=== PATIENT | male | born 1955 | race Caucasian/White ===

== ENCOUNTER → 2018-03-27 | Outpatient (CLI) | payer BC, OTHER ==
[2018-03-27 10:05] LABS: Albumin 4.2 g/dL (3.5-5.0); Calcium 9.1 mg/dL (8.4-10.2); Potassium 3.5 mmol/L (3.5-5.1); Total Bilirubin 1.3 mg/dL (0.2-1.3); Total Protein 6.7 g/dL (6.3-8.2)
== END | disposition home or self-care (01) ==
LOC: LABWHC1 08:28
PROVIDERS: ATTEND Internal Medicine Interventional Cardiology
DX: E78.2 Mixed hyperlipidemia (principal)
CPT/HCPCS: 36415; 80053; 80061

== ENCOUNTER → 2019-04-06 | Outpatient (CLI) | payer MEDICARE, OTHER ==
[2019-04-06 17:29] LABS: Albumin 4.4 g/dL (3.80-4.90); Albumin/Globulin Ratio 2.2 (1.60-3.17); Anion Gap 7.8 mmol/L (4.00-12.00); Calcium 9.1 mg/dL (8.7-10.3); Carbon Dioxide 33.2 mmol/L (21.6-31.8); Potassium 3.9 mmol/L (3.5-5.5); Total Bilirubin 1.1 mg/dL (0.2-1.2); Total Protein 6.4 g/dL (6.2-8.2)
== END ==
LOC: LABWHC1 08:29
PROVIDERS: ATTEND Nurse Practitioner Adult Health
DX: E78.2 Mixed hyperlipidemia (principal); I10 Essential (primary) hypertension
CPT/HCPCS: 36415; 80053; 80061

== ENCOUNTER → 2019-07-10 | Outpatient (CLI) | payer MEDICARE, OTHER ==
--- NOTE | 2019-07-10 15:37 | CT ---
EXAMINATION TYPE: CT brain wo/w con DATE OF EXAM: 07/10/2019 COMPARISON: NONE HISTORY: Memory loss CT DLP: 2054.4 mGycm Automated Exposure Control for Dose Reduction was Utilized. TECHNIQUE: CT scan of the head is performed with IV contrast.,CT scan of the head is performed withou t and with without and with IV Contrast, patient injected with 100 mL of Isovue 300. FINDINGS: Noncontrast images show no acute intracranial hemorrhage or midline shift. The ventricles and sulci are symmetrically prominent compatible with age-related volume loss. Few patchy areas of h ypoattenuation are seen within the deep white matter, most commonly on the basis of microangiopathy. Postcontrast images show no suspicious enhancing intraparenchymal mass. The globes are intact. There is complete opacification of the right maxillary sinus and mild mucosal thickening in the ethmoid sin uses. Leftward nasal septal deviation and a small leftward nasal septal spur seen. Remaining paranasa l sinuses and mastoid air cells are well aerated. IMPRESSION: 1. No suspicious enhancing intracranial mass. No mass effect or midline shift. MRI improved sensitivi ty if there is further concern for very small metastases. 2. Mild burden nonspecific white matter change, most likely on the basis of chronic microangiopathy. 3. Complete opacification the right maxillary sinus and mild ethmoid mucosal thickening.
--- NOTE | 2019-07-10 15:39 | US ---
EXAMINATION TYPE: US carotid duplex BILAT DATE OF EXAM: 07/10/2019 COMPARISON: NONE CLINICAL HISTORY: I67.82 Cerebral Ischemia. EXAM MEASUREMENTS: RIGHT: Peak Systolic Velocity (PSV) cm/sec ----- Right CCA: 108.2 ----- Right ICA: 89.2 ----- Right ECA: 78.8 ICA/CCA ratio: 0.8 RIGHT: End Diastole cm/sec ----- Right CCA: 21.5 ----- Right ICA: 28.3 ----- Right ECA: 11.5 LEFT: Peak Systolic Velocity (PSV) cm/sec ----- Left CCA: 102.3 ----- Left ICA: 80.1 ----- Left ECA: 141.5 ICA/CCA ratio: 0.8 LEFT: End Diastole cm/sec ----- Left CCA: 19.5 ----- Left ICA: 25.8 ----- Left ECA: 16.0 VERTEBRALS (direction of flow): Right Vertebral: Antegrade Left Vertebral: Antegrade Rhythm: Normal Moderate amount of plaque visualized in bilateral bulbs. Elevated left ECA velocity incidentally note d, mild stenosis. IMPRESSION: Moderate degree of grayscale atheromatous plaquing with no sonographically evident hemod ynamically significant stenosis within either visualized common nor internal carotid arterial system. Criteria for Assigning % of Stenosis / Diameter reduction (Estimation based on the indirect measurements of the internal carotid artery velocities (ICA PSV). 1. Normal (no stenosis)=ICA PSV < 125 cm/s: ratio < 2.0: ICA EDV<40 cm/s. 2. Less than 50% stenosis=ICA PSV < 125 cm/s: ratio < 2.0: ICA EDV<40 cm/s. 3. 50 to 69% stenosis=ICA PSV of 125 to 230 cm/s: ration 2.0 ? 4.0: ICA EDV 40-100 cm/s. 4. Greater than 70% stenosis to near occlusion= ICA PSV > 230 cm/s: ratio > 4.0: ICA EDV > 100 cm/s. 5. Near occlusion= ICA PSV velocities may be low or undetectable: variable ratio and ICA EDV. 6. Total occlusion=unable to detect flow.
--- NOTE | 2019-07-10 17:19 | XR ---
EXAMINATION TYPE: XR chest 2V DATE OF EXAM: 07/10/2019 COMPARISON: Prior chest x-ray 12/12/2015 HISTORY: Asbestosis TECHNIQUE: Frontal and lateral views of the chest are obtained. FINDINGS: There is no focal air space opacity, pleural effusion, or pneumothorax seen. The cardiac silhouette size is stable. There is some lateralization of the left hemidiaphragm. The osseous struc tures are intact. Increased AP diameter of the chest, prominent lung volume may be indicative of unde rlying COPD. IMPRESSION: No acute cardiopulmonary process.
== END ==
LOC: RADCTMAIN 13:57
PROVIDERS: ATTEND Family Medicine
DX: I65.23 Occlusion and stenosis of bilateral carotid arteries (principal); R90.89 Other abnormal findings on diagnostic imaging of central nervous system; J61 Pneumoconiosis due to asbestos and other mineral fibers
CPT/HCPCS: 71046; 93880; 70470; Q9967

== ENCOUNTER → 2019-10-21 | Outpatient (CLI) | payer MEDICARE, OTHER ==
[2019-10-21 16:21] LABS: Chol/HDL Ratio 2.77; LDL Cholesterol,Calculated 68.2 mg/dL (0.0-131.0); VLDL Calculation 16.8 mg/dL (5.00-40.00)
== END | disposition home or self-care (01) ==
LOC: LABWHC1 10:16
PROVIDERS: ATTEND Internal Medicine Interventional Cardiology
DX: E78.2 Mixed hyperlipidemia (principal)
CPT/HCPCS: 36415; 80061; 84450; 84460

== ENCOUNTER → 2020-05-16 | Outpatient (CLI) | payer MEDICARE, OTHER ==
--- NOTE | 2020-05-16 11:48 | XR ---
EXAM TYPE: LUMBAR SPINE X RAY SERIES COMPARISON: NONE HISTORY: Low back TECHNIQUE: 3 views are submitted. FINDINGS: Alignment is anatomic. The pedicles are intact. The transverse processes are intact. There is no s pondylolisthesis. Multilevel hypertrophic changes noted. There is multilevel facet arthropathy. Dege nerative mild disc disease noted at multiple levels. Atherosclerotic changes of the aorta. IMPRESSION: 1. Multilevel hypertrophic and degenerative changes.
== END | disposition home or self-care (01) ==
LOC: RADXRMAIN 11:24
PROVIDERS: ATTEND Family Medicine
DX: M47.816 Spondylosis without myelopathy or radiculopathy, lumbar region (principal)
CPT/HCPCS: 72100

== ENCOUNTER → 2020-05-17 | Outpatient (CLI) | payer MEDICARE, OTHER ==
[2020-05-17 18:05] LABS: African American GFR (CKD) 55.4 (60.0-200.0); Albumin 4.6 g/dL (3.80-4.90); Anion Gap 10.2 mmol/L (4.00-12.00); Calcium 9.2 mg/dL (8.7-10.3); Carbon Dioxide 29.8 mmol/L (21.6-31.8); Chol/HDL Ratio 2.69; Globulin 2.3 g/dL (1.6-3.3); LDL Cholesterol,Calculated 71.2 mg/dL (0.0-131.0); Non-African American GFR(CKD) 47.8 (60.0-200.0); Potassium 3.5 mmol/L (3.5-5.5); Total Protein 6.9 g/dL (6.2-8.2); VLDL Calculation 14.8 mg/dL (5.00-40.00)
== END | disposition home or self-care (01) ==
LOC: LABWHC1 07:46
PROVIDERS: ATTEND Internal Medicine Interventional Cardiology
DX: E78.2 Mixed hyperlipidemia (principal)
CPT/HCPCS: 36415; 80053; 80061

== ENCOUNTER → 2020-07-20 | Outpatient (CLI) | payer MEDICARE, OTHER ==
--- NOTE | 2020-07-20 17:42 | US ---
EXAMINATION TYPE: US carotid duplex BILAT DATE OF EXAM: 07/20/2020 COMPARISON: NONE CLINICAL HISTORY: I65.29 Occlusion and stenosis of unspecified.... EXAM MEASUREMENTS: RIGHT: Peak Systolic Velocity (PSV) cm/sec ----- Right CCA: 86.0 ----- Right ICA: 60.9 ----- Right ECA: 63.1 ICA/CCA ratio: 0.69 RIGHT: End Diastole cm/sec ----- Right CCA: 32.6 ----- Right ICA: 24.4 ----- Right ECA: 12.9 LEFT: Peak Systolic Velocity (PSV) cm/sec ----- Left CCA: 60.9 ----- Left ICA: 57.6 ----- Left ECA: 68.6 ICA/CCA ratio: 0.95 LEFT: End Diastole cm/sec ----- Left CCA: 16.9 ----- Left ICA: 30.2 ----- Left ECA: 12.0 VERTEBRALS (direction of flow): Right Vertebral: not visualized Left Vertebral: Antegrade Rhythm: Normal Mild atherosclerotic changes with no significant velocity increases seen bilaterally. Some focal plaques are within the bilateral common carotid arteries. IMPRESSION: Atheromatous plaquing without significant flow-limiting stenosis. Criteria for Assigning % of Stenosis / Diameter reduction (Estimation based on the indirect measurements of the internal carotid artery velocities (ICA PSV). 1. Normal (no stenosis)=ICA PSV < 125 cm/s: ratio < 2.0: ICA EDV<40 cm/s. 2. Less than 50% stenosis=ICA PSV < 125 cm/s: ratio < 2.0: ICA EDV<40 cm/s. 3. 50 to 69% stenosis=ICA PSV of 125 to 230 cm/s: ration 2.0 ? 4.0: ICA EDV 40-100 cm/s. 4. Greater than 70% stenosis to near occlusion= ICA PSV > 230 cm/s: ratio > 4.0: ICA EDV > 100 cm/s. 5. Near occlusion= ICA PSV velocities may be low or undetectable: variable ratio and ICA EDV. 6. Total occlusion=unable to detect flow.
== END | disposition home or self-care (01) ==
LOC: RADUSWWP 08:18
PROVIDERS: ATTEND Family Medicine
DX: I65.23 Occlusion and stenosis of bilateral carotid arteries (principal)
CPT/HCPCS: 93880

== ENCOUNTER 2021-04-25 07:54 | Day surgery (SDC) | payer MEDICARE, OTHER ==
[2021-04-19 18:08] VITALS: BMI 28.5
[~2021-04-25 07:54] MED LIST: LACTATED RINGERS 1,000 ML IV SCH; LIDOCAINE 1% (10MG/ML) FOR IV START INTRADERMA PRN
[2021-04-25 08:17] VITALS: TEMP 97
[2021-04-25] MEDS ORDERED: PROPOFOL 10 MG/ML 20 ML VIAL IV ONE (08:41)
[2021-04-25] MEDS ORDERED: LIDOCAINE 1% INJ 10MG/ML (20 ML MDV) ONE (08:41)
[2021-04-25 09:14] VITALS: RESP 16
--- NOTE | 2021-04-25 09:14 | P.PCN ---
Date of Procedure: 04/25/21 Description of Procedure: BRIEF HISTORY: Patient is a 66-year-old male presenting for outpatient colonoscopy for history of colon polyps. No change in bowel habits or blood per rectum reported. History of polypectomy. No family history of colon cancer. PROCEDURE PERFORMED: Colonoscopy with polypectomy. PREOPERATIVE DIAGNOSIS: History of colon polyps, last colonoscopy 5 years ago. ESTIMATED BLOOD LOSS: Minimal. IV sedation per Anesthesia. PROCEDURE: After informed consent was obtained, the patient, was brought into the endoscopy unit. IV sedation was administered by Anesthesia under continuous monitoring. Digital rectal examination was normal. Initially the Olympus CF-190 flexible video colonoscope was then inserted in the rectum, gradually advanced into the cecum without any difficulty. Careful examination was performed as the scope was gradually being withdrawn. Ileocecal valve and the appendiceal orifice were visualized and appeared normal. Prep was excellent. Mucosa of the cecum, ascending colon, transverse colon, descending colon, sigmoid colon, and rectum appeared normal, with a few scattered diverticula noted in the sigmoid colon. A sessile 2 mm transverse colon polyp was removed with cold forceps polypectomy. Retroflexion was performed in the rectum and no lesions were seen. The patient tolerated the procedure well. IMPRESSION: Diminutive transverse colon polyp removed with cold forcep polypectomy. Mild sigmoid diverticulosis. RECOMMENDATIONS: Findings of this examination were discussed with the patient and his family. Okay to resume diet. Okay to resume medication. Await pathology from polypectomy. Recommend repeat colonoscopy in 5 years for history of colon polyps.
[2021-04-25 09:38] VITALS: BP 115/50; PULSE 62
== END 2021-04-25 09:57 | disposition home or self-care (01) ==
LOC: ORWHC2ENDO 07:54
PROVIDERS: ATTEND Internal Medicine
DX: Z12.11 Encounter for screening for malignant neoplasm of colon (principal); D12.3 Benign neoplasm of transverse colon; Z86.010 Personal history of colon polyps; I10 Essential (primary) hypertension; E78.5 Hyperlipidemia, unspecified; I25.2 Old myocardial infarction; Z79.899 Other long term (current) drug therapy
CPT/HCPCS: 88305; 45380; J2001; J2704

== ENCOUNTER 2021-06-01 05:51 | Day surgery (SDC) | payer MEDICARE, OTHER ==
[2021-05-30 11:57] VITALS: BMI 27.8
[~2021-06-01 05:51] MED LIST changes: -LACTATED RINGERS 1,000 ML IV SCH; -LIDOCAINE 1% (10MG/ML) FOR IV START INTRADERMA PRN; +SODIUM CHLORIDE 0.9% 1,000 ML IV SCH
[2021-06-01 06:43] LABS: Calcium 9.3 mg/dL (8.4-10.2); Potassium 3.1 mmol/L (3.5-5.1)
[2021-06-01 07:00] VITALS: TEMP 97.9
[2021-06-01] MEDS ORDERED: PROPOFOL 10 MG/ML 20 ML VIAL IV ONE (07:15)
[2021-06-01] MEDS ORDERED: LIDOCAINE 1% INJ 10MG/ML (20 ML MDV) ONE (07:15)
[2021-06-01 07:59] VITALS: RESP 16
[2021-06-01] MEDS ORDERED: SODIUM CHLORIDE 0.9% 1,000 ML IV SCH (08:00)
[2021-06-01] MEDS ORDERED: VALSARTAN 160 MG TAB PO SCH (09:00)
[2021-06-01] MEDS ORDERED: hydroCHLOROthiazide 25 MG TAB PO SCH (09:00)
[2021-06-01] MEDS ORDERED: METOPROLOL TARTRATE 25 MG TAB PO SCH (09:00)
--- NOTE | 2021-06-01 09:01 | ECHOT ---
TRANSESOPHAGEAL ECHOCARDIOGRAM PROCEDURE: Transesophageal echocardiogram. INDICATION: Atrial fibrillation. PROCEDURE IN DETAIL: After explaining the procedure to the patient, its risks and the complications, his blood pressure, heart rate, O2 saturation was monitored. The throat was sprayed with Cetacaine. He received sedation per Anesthesia Department. The probe was introduced in the esophagus without difficulty. Images were obtained. Following that, the probe was removed. There was no immediate complication. FINDINGS: Left atrial size is dilated. Left atrial appendage is normal. Left ventricular size is normal. The inferior wall is hypokinetic. Estimated ejection fraction 45-50%. The aortic valve revealed mild fibrocalcific change with aortic cusp with preserved opening. Mitral valve revealed mild mitral anulus calcification. Tricuspid valve is normal. Descending thoracic aorta appears to be normal. No pericardial effusion was noted. Contrast bubble study revealed no evidence of shunting across the interatrial septum. Doppler pulse wave and color Doppler obtained and revealed a moderate mitral with mild tricuspid and trace pulmonic and aortic regurgitation. There was no shunting by color Doppler study. CONCLUSION: 1. Dilated left atrium with normal appearance of left atrial appendage. 2. Normal left ventricular size with mildly impaired left ventricular systolic function with segmental wall motion abnormality. 3. Moderate mitral with trace aortic and pulmonic regurgitation. 4. No shunting across the interatrial septum. MMODL / IJN: [id number] /
--- NOTE | 2021-06-01 09:41 | CE ---
CARDIAC ELECTROPHYSIOLOGY REPORT PROCEDURE PERFORMED: Cardioversion. INDICATION: Atrial fibrillation. PROCEDURE: After explaining the procedure to the patient, its risks and complication, after obtaining sedated state per Anesthesia Department and performing transesophageal echocardiogram, a synchronized biphasic cardioversion was done using 200 joule that was unsuccessful in restoring sinus mechanism. Subsequently, second cardioversion using 250 joules was successful in restoring sinus mechanism. There was no immediate complication. JUAN JOSÉ / JAIDENN: [id number] /
[2021-06-01 16:45] VITALS: BP 114/66
[2021-06-01 16:46] VITALS: PULSE 44
[2021-06-01] MEDS ORDERED: ATORVASTATIN 80 MG TAB PO SCH (21:00)
[2021-06-01] MEDS ORDERED: EZETIMIBE 10 MG TAB PO SCH (21:00)
[2021-06-01] MEDS ORDERED: APIXABAN 5 MG TAB PO SCH (21:00)
[2021-06-02] MEDS ORDERED: amLODIPine 10 MG TAB PO SCH (09:00)
== END 2021-06-01 09:52 | disposition home or self-care (01) ==
LOC: CATHCVL 05:51
PROVIDERS: ATTEND Internal Medicine Interventional Cardiology
DX: I48.11 Longstanding persistent atrial fibrillation (principal); I25.10 Atherosclerotic heart disease of native coronary artery without angina pectoris; I25.5 Ischemic cardiomyopathy; I08.0 Rheumatic disorders of both mitral and aortic valves; E78.2 Mixed hyperlipidemia; I10 Essential (primary) hypertension; R94.39 Abnormal result of other cardiovascular function study; I25.2 Old myocardial infarction; G47.30 Sleep apnea, unspecified; Z95.5 Presence of coronary angioplasty implant and graft; Z85.46 Personal history of malignant neoplasm of prostate; Z92.3 Personal history of irradiation; Z98.890 Other specified postprocedural states; Z82.49 Family history of ischemic heart disease and other diseases of the circulatory system; Z87.891 Personal history of nicotine dependence; Z79.01 Long term (current) use of anticoagulants; Z79.899 Other long term (current) drug therapy
CPT/HCPCS: 93312; 93320; 93325; 92960; 80048; J2001; J2704

== ENCOUNTER → 2021-12-25 | Outpatient (CLI) | payer MEDICARE, OTHER ==
--- NOTE | 2021-12-25 11:59 | XR ---
EXAMINATION TYPE: XR chest 2V DATE OF EXAM: 12/25/2021 COMPARISON: Chest x-ray 07/10/2019 HISTORY: J 61 TECHNIQUE: Frontal and lateral views of the chest are obtained. FINDINGS: There is no focal air space opacity, pleural effusion, or pneumothorax seen. The cardiac silhouette size is stable. The osseous structures are stable, old fracture with bayonet apposition and healing at the mid diaphyseal right clavicle is noted. Aorta is dense. IMPRESSION: No acute cardiopulmonary process.
[2021-12-25 14:58] LABS: ALT 21 U/L (10-49); AST 21 U/L (14-35); African American GFR (CKD) 64.8 (60.0-200.0); Albumin 4.3 g/dL (3.8-4.9); Albumin/Globulin Ratio 1.51 (1.60-3.17); Alkaline Phosphatase 167 U/L (41-126); BUN/Creat Ratio 13.44 Ratio (12.00-20.00); Blood Urea Nitrogen 17.6 mg/dL (9.0-27.0); Calcium 9.4 mg/dL (8.7-10.3); Carbon Dioxide 28.7 mmol/L (20.0-27.5); Chloride 101 mmol/L (96-109); Chol/HDL Ratio 2.61 Ratio; Globulin 2.9 g/dL (1.6-3.3); Glucose 96 mg/dL (70-110); LDL Cholesterol,Calculated 64.8 mg/dL (0.0-131.0); Non-African American GFR(CKD) 55.9 (60.0-200.0); Potassium 3.2 mmol/L (3.5-5.5); Sodium 142 mmol/L (135-145); Total Protein 7.2 g/dL (6.2-8.2)
== END | disposition home or self-care (01) ==
LOC: RADXRMAIN 09:30
PROVIDERS: ATTEND Family Medicine
DX: J61 Pneumoconiosis due to asbestos and other mineral fibers (principal)
CPT/HCPCS: 71046; 80053; 80061

== ENCOUNTER → 2021-12-25 | Outpatient (CLI) | payer MEDICARE, OTHER | END | disposition home or self-care (01) | LOC: LABWHC1 10:01 | PROVIDERS: ATTEND Internal Medicine Interventional Cardiology | DX: Z53.9 Procedure and treatment not carried out, unspecified reason (principal) ==

== ENCOUNTER → 2024-06-19 | Outpatient (CLI) | payer MEDICARE, OTHER ==
--- NOTE | 2024-06-19 13:15 | US ---
EXAMINATION TYPE: US carotid duplex BILAT DATE OF EXAM: 06/19/2024 COMPARISON: Carotid ultrasound 07/20/2020, 07/10/2019 CLINICAL INDICATION: Male, 69 years old with history of I65.29 OCCLUSION AND STENOSIS OF UNSPECIFIED CAROT; Drooling; Hx HTN TECHNIQUE: Carotid duplex ultrasound examination. Indirect Doppler criteria was utilized. FINDINGS: EXAM MEASUREMENTS: RIGHT: Peak Systolic Velocity (PSV) cm/sec ----- Right CCA: 72 ----- Right ICA: 48 ----- Right ECA: 65 ICA/CCA ratio: 0.7 RIGHT: End Diastole cm/sec ----- Right CCA: 14 ----- Right ICA: 19 ----- Right ECA: 12 LEFT: Peak Systolic Velocity (PSV) cm/sec ----- Left CCA: 78 ----- Left ICA: 67 ----- Left ECA: 78 ICA/CCA ratio: 0.9 LEFT: End Diastole cm/sec ----- Left CCA: 18 ----- Left ICA: 18 ----- Left ECA: 8 VERTEBRALS (direction of flow): Right Vertebral: Limted visualization; ? Antegrade Left Vertebral: Antegrade Rhythm: Arrhythmia; Image 16 CASINO HOST NOTES: Calcifications seen bilateral CCAs, no intimal thickening, and no elevated velocit ies Left thyroid lobe hypoechoic nodule measuring 2.2 x 1.8 x 2.4 cm. IMPRESSION: 1. Mild atherosclerotic plaque without flow limiting stenosis. 2. Left thyroid lobe hypoechoic nodule measuring up to 2.4 cm. Further evaluation with thyroid ultra sound is recommended. 3. Arrhythmia noted. EKG is recommended. Criteria for Assigning % of Stenosis / Diameter reduction (Estimation based on the indirect measurements of the internal carotid artery velocities (ICA PSV). 1. Normal (no stenosis)=ICA PSV < 125 cm/s: ratio < 2.0: ICA EDV<40 cm/s. 2. Less than 50% stenosis=ICA PSV < 125 cm/s: ratio < 2.0: ICA EDV<40 cm/s. 3. 50 to 69% stenosis=ICA PSV of 125 to 230 cm/s: ration 2.0 ? 4.0: ICA EDV 40-100 cm/s. 4. Greater than 70% stenosis to near occlusion= ICA PSV > 230 cm/s: ratio > 4.0: ICA EDV > 100 cm/s. 5. Near occlusion= ICA PSV velocities may be low or undetectable: variable ratio and ICA EDV. 6. Total occlusion=unable to detect flow.
== END | disposition home or self-care (01) ==
LOC: RADUSWWP 12:31
PROVIDERS: ATTEND Family Medicine
DX: I65.29 Occlusion and stenosis of unspecified carotid artery (principal); I70.90 Unspecified atherosclerosis
CPT/HCPCS: 93880

== ENCOUNTER → 2024-07-06 | Outpatient (CLI) | payer MEDICARE, OTHER ==
--- NOTE | 2024-08-13 08:45 | US ---
Site ID [facility] Patient Wesley Roberson ID [id number] Age/Gender: 69Y, N/A Order # N/A Procedure US thyroid st tissue head/neck Date 07/06/2024 12:41:00 PM EXAMINATION TYPE: US thyroid st tissue head/neck DATE OF EXAM: 07/20/2024 COMPARISON: None, please note PACS Production downtime occurred during the radiologist interpretation of these images with limited priors/reports. CLINICAL INDICATION: 69 year old with history of thyroid nodule visualized on outside institution car otid ultrasound. GLAND SIZE: Right Lobe: 4.2 x 2.1 x 1.9 cm Overall Parenchyma: homogeneous Left Lobe: 4.2 x 2.3 x 2.2 cm Overall Parenchyma: homogeneous Isthmus Thickness: 0.3 cm NODULES RIGHT: # of nodules measured on right: 1 1. 2.6 X 1.7 x 1.6 cm, lower , solid or almost completely solid, hypoechoic nodule, which is wider than tall, with smooth margins, with echogenic foci. TR 4. LEFT: # of nodules measured on left: 1 1. 2.2 X 2.1 x 1.8 cm, mid , solid or almost completely solid, hypoechoic nodule, which is wider th an tall, with smooth margins, without echogenic foci. TR 4. ISTHMUS: # of nodules measured in the isthmus: 0 Bilateral neck scanned, no evidence of lymphadenopathy. IMPRESSION: Bilateral thyroid nodules as described above. ACR TI-RADS LEVEL: TR-RADS 4 - Moderately Suspicious: Follow if > 1 cm, FNA if > 1.5 cm *Highest TI-RADS level nodule reported
== END | disposition home or self-care (01) ==
LOC: RADUSWWP 12:00
PROVIDERS: ATTEND Family Medicine
CPT/HCPCS: 76536

== ENCOUNTER → 2024-10-13 | Outpatient (CLI) | payer MEDICARE, OTHER ==
[2024-10-13 19:43] LABS: ALT 20 U/L (10-49); AST 19 U/L (14-35); Albumin 4.5 g/dL (3.8-4.9); Albumin/Globulin Ratio 1.61 Ratio (1.60-3.17); Alkaline Phosphatase 184 U/L (41-126); BUN/Creat Ratio 15.08 Ratio (12.00-20.00); Blood Urea Nitrogen 18.1 mg/dL (9.0-27.0); Calcium 9.6 mg/dL (8.7-10.3); Chloride 104 mmol/L (96-109); Chol/HDL Ratio 3.15 Ratio; Globulin 2.8 g/dL (1.6-3.3); Glucose 98 mg/dL (70-110); LDL Cholesterol,Calculated 106.6 mg/dL (0.0-131.0); Potassium 3.6 mmol/L (3.5-5.5); Sodium 141 mmol/L (135-145); Total Bilirubin 1.4 mg/dL (0.3-1.2); Total Protein 7.3 g/dL (6.2-8.2)
== END | disposition home or self-care (01) ==
LOC: LABWHC1 15:07
PROVIDERS: ATTEND Internal Medicine Interventional Cardiology
DX: I10 Essential (primary) hypertension (principal); E78.2 Mixed hyperlipidemia
CPT/HCPCS: 36415; 80053; 80061

== ENCOUNTER 2024-11-06 17:12 | Emergency (ER) | payer MEDICARE, OTHER ==
[2024-11-06 17:22] VITALS: TEMP 97.9
[2024-11-06] MEDS: SODIUM CHLORIDE 0.9% 500 ML 500 ML IV ONE (18:17)
[2024-11-06 18:19] LABS: Basophils % (A) 0 %; Eosinophils % (A) 0 %; HCT 49.1 % (39.0-53.0); HGB 16.7 gm/dL (13.0-17.5); Lymphocytes # (A) 2.3 k/uL (1.0-4.8); Lymphocytes % (A) 20 %; MCH 29.9 pg (25.0-35.0); MCV 87.9 fL (80.0-100.0); Mean Platelet Volume 6.7; Monocytes # (A) 0.8 k/uL (0-1.0); Monocytes % (A) 7 %; Neutrophils # (A) 7.9 k/uL (1.3-7.7); Neutrophils % (A) 71 %; Platelet Count 230 k/uL (150-450); RBC 5.59 m/uL (4.30-5.90); RDW 12.3 % (11.5-15.5); WBC 11.2 k/uL (3.8-10.6)
[2024-11-06 18:30] LABS: ALT 18 U/L (4-49); AST 22 U/L (17-59); African American GFR (CKD) 63 (>60 ml/min/1.73 sqM); Albumin 4.8 g/dL (3.5-5.0); Alkaline Phosphatase 133 U/L (38-126); Anion Gap 10 mmol/L; Blood Urea Nitrogen 22 mg/dL (9-20); Carbon Dioxide 24 mmol/L (22-30); Chloride 105 mmol/L (98-107); Glucose 99 mg/dL (74-99); Non-African American GFR(CKD) 54 (>60 ml/min/1.73 sqM); Potassium 3.4 mmol/L (3.5-5.1); Sodium 139 mmol/L (137-145); Total Protein 7.5 g/dL (6.3-8.2)
[2024-11-06 18:32] LABS: Partial Thromboplastin Time 23.4 sec (22.0-30.0); Prothrombin Time 11.5 sec (10.0-12.5)
--- NOTE | 2024-11-06 19:11 | ED ---
Altered Mental Status HPI - General Chief Complaint: Altered Mental Status Stated Complaint: Abn Labs Time Seen by Provider: 11/06/24 17:23 Source: patient, family Mode of arrival: ambulatory Limitations: altered mental status - History of Present Illness Initial Comments: 69-year-old male with history of dementia, A-fib, CAD, hypertension, hyperlipidemia, [place] presenting with acute worsening of his confusion and agitation. Patient's reports that this has been ongoing for about 5 days. They were seen at Dr. Stack's office earlier today and advised to come to the ER. She also reports he has had significantly decreased appetite. States that he has not eaten in 3 days and is only drinking a small amount of Gatorade. No nausea or vomiting. states he told her he had diarrhea earlier today. No chest pain, difficulty breathing, abdominal pain. No fever, chills, cough, congestion, sore throat. denies any falls or injuries. - Related Data Home Medications Medication Instructions Recorded Confirmed Atorvastatin [Lipitor] 80 mg PO HS 04/13/16 11/06/24 Metoprolol Tartrate [Lopressor] 25 mg PO HS 04/13/16 11/06/24 amLODIPine [Norvasc] 10 mg PO HS 04/13/16 11/06/24 Ezetimibe [Zetia] 10 mg PO HS 04/19/21 11/06/24 Apixaban [Eliquis] 5 mg PO HS 11/06/24 11/06/24 Ergocalciferol (Vitamin D2) 1,250 mcg PO RUDOLPH 11/06/24 11/06/24 [Drisdol (50,000 Iu)] Potassium Chloride ER [K-Dur 20] 20 meq PO HS 11/06/24 11/06/24 Allergies Allergy/AdvReac Type Severity Reaction Status Date / Time No Known Allergies Allergy Verified 11/06/24 18:29 Review of Systems ROS Statement: Those systems with pertinent positive or pertinent negative responses have been documented in the HPI. ROS Other: All systems not noted in ROS Statement are negative. Past Medical History Past Medical History: Atrial Fibrillation, Coronary Artery Disease (CAD), Cancer, Dementia, Hyperlipidemia, Hypertension, Myocardial Infarction ([place]) Additional Past Medical History / Comment(s): HX OF PROSTATE CANCER WITH RADIATION SEED IMPLANTS (2010). hx of colon polyps Last Myocardial Infarction Date:: 2011 History of Any Multi-Drug Resistant Organisms: None Reported Past Surgical History: Heart Catheterization With Stent Additional Past Surgical History / Comment(s): COLONOSCOPY. Past Anesthesia/Blood Transfusion Reactions: No Reported Reaction Date of Last Stent Placement:: 2011 Past Psychological History: No Psychological Hx Reported Smoking Status: Never smoker - Past Family History Mother Family Medical History: No Reported History Additional Family Medical History / Comment(s): . General Exam Limitations: altered mental status General appearance: alert, in no apparent distress Head exam: Present: atraumatic, normocephalic, normal inspection Eye exam: Present: normal appearance, PERRL, EOMI Pupils: Present: normal accommodation Neck exam: Present: normal inspection. Absent: meningismus Respiratory exam: Present: normal lung sounds bilaterally. Absent: respiratory distress, wheezes, rales, rhonchi, stridor Cardiovascular Exam: Present: regular rate, normal rhythm, normal heart sounds. Absent: systolic murmur, diastolic murmur, rubs, gallop, clicks GI/Abdominal exam: Present: soft. Absent: distended, tenderness, guarding, rebound, rigid Neurological exam: Present: alert, altered Skin exam: Present: warm, dry, normal color Course Vital Signs 11/06/24 11/06/24 17:17 19:28 Temperature 97.9 F Pulse Rate 82 58 L Respiratory 18 16 Rate Blood Pressure 115/81 130/78 O2 Sat by Pulse 97 98 Oximetry Medical Decision Making - Medical Decision Making EKG shows sinus rhythm ventricular rate 66. LA interval 152. QRS 112. QT 411. QTc 425. Was pt. sent in by a medical professional or institution (, PA, SECRETARIAL STENOGRAPHER, urgent care, hospital, or longterm...) When possible be specific @ -PCP Did you speak to anyone other than the patient for history (EMS, parent, family, police, friend...)? What history was obtained from this source @ - Did you review nursing and triage notes (agree or disagree)? Why? @ -I reviewed and agree with nursing and triage notes Were old charts reviewed (outside hosp., previous admission, EMS record, old EKG, old radiological studies, urgent care reports/EKG's, longterm records)? Report findings @ -No old charts were reviewed Differential Diagnosis (chest pain, altered mental status, abdominal pain women, abdominal pain men, vaginal bleeding, weakness, fever, dyspnea, syncope, headache, dizziness, GI bleed, back pain, seizure, CVA, palpatations, mental health, musculoskeletal)? @ -MDM Differential Altered Mental Status: Hypoglycemia, DKA, hypercapnia, ETOH, overdose, CO poisoning, trauma, myxedema coma, HTN encephalopathy, infection, encephalitis, psychosis, intercranial hemorrhage, hepatic encephalopathy, meningitis, CVA this is not meant to be an all-inclusive list EKG interpreted by me (3pts min.). @ -As above X-rays interpreted by me (1pt min.). @ -Chest x-ray shows no acute cardiopulmonary disease/process CT interpreted by me (1pt min.). @ -CT shows no acute intracranial process. Nonspecific white matter changes likely secondary to chronic small vessel ischemic disease U/S interpreted by me (1pt. min.). @ -None done What testing was considered but not performed or refused? (CT, X-rays, U/S, labs)? Why? @ -None What meds were considered but not given or refused? Why? @ -None Did you discuss the management of the patient with other professionals (professionals i.e. , PA, SECRETARIAL STENOGRAPHER, lab, RT, psych nurse, social secretary, elevator repairer helper, teacher, building drafting officer, bilingual case manager)? Give summary @ -No Was smoking cessation discussed for >3mins.? @ -No Was critical care preformed (if so, how long)? @ -No Were there social determinants of health that impacted care today? How? (Homelessness, low income, unemployed, alcoholism, drug addiction, transportation, low edu. Level, literacy, decrease access to med. care, fpc, rehab)? @ -No Was there de-escalation of care discussed even if they declined (Discuss DNR or withdrawal of care, Hospice)? DNR status @ -No What co-morbidities impacted this encounter? (DM, HTN, Smoking, COPD, CAD, Canc er, CVA, ARF, Chemo, Hep., AIDS, mental health diagnosis, sleep apnea, morbid obesity)? @ -None Was patient admitted / discharged? Hospital course, mention meds given and route, prescriptions, significant lab abnormalities, going to OR and other pertinent info. @ -69-year-old male brought in by his for increased altered mental status. Patient has history of dementia but over the past 5 days his confusion and agitation has acutely worsened. History and physical examination are conducted. WBC 11.2. Potassium 3.4. Creatinine 1.33 BUN 22, consistent with the patient's baseline. Troponin is negative. No acute process seen on CT of the brain or chest x-ray. No UTI seen. On reassessment the patient is showing no acute signs of distress. I discussed today's results with the patient's . I offered admission with possible longterm placement. declines, she will follow-up with her primary care provider and bring him back sooner with any changes. Discharged. Follow-up with PCP. Report back to ER with any new or worsening symptoms. Discussed return parameters and answered all questions. Patient's conveyed verbal understanding and agreed to the plan. I di scussed this case in detail with my attending Dr. Turpin Undiagnosed new problem with uncertain prognosis? @ -No Drug Therapy requiring intensive monitoring for toxicity (Heparin, Nitro, Insulin, Cardizem)? @ -No Were any procedures done? @ -No Diagnosis/symptom? @ -Dementia Acute, or Chronic, or Acute on Chronic? @ -Acute on chronic Uncomplicated (without systemic symptoms) or Complicated (systemic symptoms)? @ -Uncomplicated Side effects of treatment? @ -No Exacerbation, Progression, or Severe Exacerbation? @ -No Poses a threat to life or bodily function? How? (Chest pain, [place], [place], pneumonia, PE, COPD, DKA, ARF, appy, cholecystitis, CVA, Diverticulitis, Homicidal, Suicidal, threat to staff... and all critical care pts) @ -No immediate threat at this time - Lab Data Result diagrams: 11/06/24 18:05 11/06/24 18:05 Lab Results 11/06/24 11/06/24 11/06/24 Range/Units 18:05 18:05 18:05 WBC 11.2 H (3.8-10.6) k/uL RBC 5.59 (4.30-5.90) m/uL Hgb 16.7 (13.0-17.5) gm/dL Hct 49.1 (39.0-53.0) % MCV 87.9 (80.0-100.0) fL MCH 29.9 (25.0-35.0) pg MCHC 34.0 (31.0-37.0) g/dL RDW 12.3 (11.5-15.5) % Plt Count 230 (150-450) k/uL MPV 6.7 Neutrophils % 71 % Lymphocytes % 20 % Monocytes % 7 % Eosinophils % 0 % Basophils % 0 % Neutrophils # 7.9 H (1.3-7.7) k/uL Lymphocytes # 2.3 (1.0-4.8) k/uL Monocytes # 0.8 (0-1.0) k/uL Eosinophils # 0.0 (0-0.7) k/uL Basophils # 0.0 (0-0.2) k/uL PT 11.5 (10.0-12.5) sec INR 1.0 (<1.2) APTT 23.4 (22.0-30.0) sec Sodium 139 (137-145) mmol/L Potassium 3.4 L (3.5-5.1) mmol/L Chloride 105 (98-107) mmol/L Carbon Dioxide 24 (22-30) mmol/L Anion Gap 10 mmol/L BUN 22 H (9-20) mg/dL Creatinine 1.33 H (0.66-1.25) mg/dL Est GFR (CKD-EPI)AfAm 63 (>60 ml/min/1.73 sqM) Est GFR (CKD-EPI)NonAf 54 (>60 ml/min/1.73 sqM) Glucose 99 (74-99) mg/dL Calcium 10.0 (8.4-10.2) mg/dL Total Bilirubin 2.0 H (0.2-1.3) mg/dL AST 22 (17-59) U/L ALT 18 (4-49) U/L Alkaline Phosphatase 133 H (38-126) U/L Ammonia (<30) umol/L Troponin I (0.000-0.034) ng/mL Total Protein 7.5 (6.3-8.2) g/dL Albumin 4.8 (3.5-5.0) g/dL Urine Color Urine Appearance (Clear) Urine pH (5.0-8.0) Ur Specific [place] (1.001-1.035) Urine Protein (Negative) Urine Glucose (UA) (Negative) Urine Ketones (Negative) Urine Blood (Negative) Urine Nitrite (Negative) Urine Bilirubin (Negative) Urine Urobilinogen (<2.0) mg/dL Ur Leukocyte Esterase (Negative) 11/06/24 11/06/24 11/06/24 Range/Units 18:05 18:05 19:49 WBC (3.8-10.6) k/uL RBC (4.30-5.90) m/uL Hgb (13.0-17.5) gm/dL Hct (39.0-53.0) % MCV (80.0-100.0) fL MCH (25.0-35.0) pg MCHC (31.0-37.0) g/dL RDW (11.5-15.5) % Plt Count (150-450) k/uL MPV Neutrophils % % Lymphocytes % % Monocytes % % Eosinophils % % Basophils % % Neutrophils # (1.3-7.7) k/uL Lymphocytes # (1.0-4.8) k/uL Monocytes # (0-1.0) k/uL Eosinophils # (0-0.7) k/uL Basophils # (0-0.2) k/uL PT (10.0-12.5) sec INR (<1.2) APTT (22.0-30.0) sec Sodium (137-145) mmol/L Potassium (3.5-5.1) mmol/L Chloride (98-107) mmol/L Carbon Dioxide (22-30) mmol/L Anion Gap mmol/L BUN (9-20) mg/dL Creatinine (0.66-1.25) mg/dL Est GFR (CKD-EPI)AfAm (>60 ml/min/1.73 sqM) Est GFR (CKD-EPI)NonAf (>60 ml/min/1.73 sqM) Glucose (74-99) mg/dL Calcium (8.4-10.2) mg/dL Total Bilirubin (0.2-1.3) mg/dL AST (17-59) U/L ALT (4-49) U/L Alkaline Phosphatase (38-126) U/L Ammonia 15 (<30) umol/L Troponin I <0.012 (0.000-0.034) ng/mL Total Protein (6.3-8.2) g/dL Albumin (3.5-5.0) g/dL Urine Color Yellow Urine Appearance Clear (Clear) Urine pH 5.5 (5.0-8.0) Ur Specific [place] 1.028 (1.001-1.035) Urine Protein Trace H (Negative) Urine Glucose (UA) Negative (Negative) Urine Ketones 1+ H (Negative) Urine Blood Negative (Negative) Urine Nitrite Negative (Negative) Urine Bilirubin Negative (Negative) Urine Urobilinogen 2.0 (<2.0) mg/dL Ur Leukocyte Esterase Negative (Negative) Disposition Clinical Impression: Dementia Disposition: HOME SELF-CARE Condition: Fair Instructions (If sedation given, give patient instructions): Altered Mental Status (ED) Additional Instructions: Follow-up with your primary care doctor. Report back to ER with any new or worsening symptoms. Is patient prescribed a controlled substance at d/c from ED?: No Referrals: Yo Stack MD [Primary Care Provider] - 1-2 days Time of Disposition: 20:39
[2024-11-06 19:31] VITALS: BP 130/78; PULSE 58; RESP 16
--- NOTE | 2024-11-06 19:41 | XR ---
EXAMINATION TYPE: XR chest 2V DATE OF EXAM: 11/06/2024 6:59 PM COMPARISON: Chest radiographs from 12/25/2021 CLINICAL INDICATION: Male, 69 years old with history of altered mental status; TECHNIQUE: XR chest 2V Frontal and lateral views of the chest. FINDINGS: Lungs/Pleura: There is no evidence of pleural effusion, focal consolidation, or pneumothorax. Pulmonary vascularity: Unremarkable. Heart/mediastinum: Cardiomediastinal silhouette is unremarkable. Musculoskeletal: No acute osseous pathology. IMPRESSION: No acute cardiopulmonary disease/process. [facility], , 11/06/2024 7:38 PM
--- NOTE | 2024-11-06 19:45 | CT ---
EXAMINATION TYPE: CT brain wo con DATE OF EXAM: 11/06/2024 7:09 PM COMPARISON: 07/10/2019. CLINICAL INDICATION: Male, 69 years old with history of Altered mental status, Increased confusion, h x of dementia. agitation with loss of appetite. TECHNIQUE: Brain: Axial CT images of the brain were obtained with coronal and sagittal reformats created and rev iewed. Contrast used: None. Oral contrast used: None. CT DLP: 1129.4 mGycm, Automated exposure control for dose reduction was used. FINDINGS: Brain: Extra-axial spaces: No abnormal extra-axial fluid collections. Ventricular system: Dilatation in proportion to cerebral atrophy. Cerebral parenchyma: Cerebral atrophy. No acute intraparenchymal hemorrhage or mass effect. The gomez -white junction is well differentiated. Scattered hypoattenuating areas are seen within the white mat ter. Cerebellum: Unremarkable. Mass effect: No evidence of midline shift. Intracranial vasculature: Atherosclerotic calcifications of the intracranial vessels. Soft tissues: Normal. Calvarium/osseous structures: No depressed skull fracture. Paranasal sinuses and mastoid air cells: Mild scattered paranasal sinus disease. Visualized orbits: Orbital contents are intact. IMPRESSION: 1. No acute intracranial process. 2. Nonspecific white matter changes, likely secondary to chronic small vessel ischemic disease. [facility], , 11/06/2024 7:43 PM
[2024-11-06 20:06] LABS: Appearance,Urine Clear (Clear); Bilirubin,Urine Negative (Negative); Blood,Urine Negative (Negative); Color,Urine Yellow; Glucose,Urine (UA) Negative (Negative); Ketones,Urine 1+ (Negative); Leukocyte Esterase,Urine Negative (Negative); Nitrite,Urine Negative (Negative); PH, Urine 5.5 (5.0-8.0); Protein,Urine Trace (Negative); Specific Gravity,Urine 1.028 (1.001-1.035)
== END 2024-11-06 20:47 | disposition home or self-care (01) ==
LOC: EC 17:12
DX: F03.911 Unspecified dementia, unspecified severity, with agitation (principal)
CPT/HCPCS: 36415; 70450; 71046; 80053; 81003; 82140; 84484; 85025; 85610; 85730; 93005; 99285

== ENCOUNTER 2025-02-12 10:05 | Emergency (ER) | payer MEDICARE, OTHER ==
[2025-02-12 10:14] VITALS: TEMP 97.8
--- NOTE | 2025-02-12 10:37 | ED ---
General Adult HPI - General Chief complaint: Altered Mental Status Stated complaint: AMS Time Seen by Provider: 02/12/25 10:37 Source: patient, EMS, RN notes reviewed, old records reviewed Mode of arrival: EMS Limitations: altered mental status - History of Present Illness Initial comments: 70-year-old male presented the ER via EMS for evaluation of altered mental status. Patient with medical history significant of dementia, atrial fibrillati on, hypertension, hyperlipidemia. Patient was found by PD this morning going for a walk. , at bedside, states since weather has been getting nice outpatient has been doing this more frequently. Patient does not remember going for a walk. reports patient has a past medical history significant of dementia, hyperlipidemia, hypertension. She states patient lives at home with herself is primary caregiver but states she is considering long-term care options. reports patient is at baseline mentation. Patient denies any current chest pain, shortness of breath, abdominal pain or other acute complaints. - Related Data Home Medications Medication Instructions Recorded Confirmed Atorvastatin [Lipitor] 80 mg PO DAILY 04/13/16 02/12/25 Metoprolol Tartrate [Lopressor] 25 mg PO BID 04/13/16 02/12/25 amLODIPine [Norvasc] 10 mg PO DAILY 04/13/16 02/12/25 Ezetimibe [Zetia] 10 mg PO DAILY 04/19/21 02/12/25 Apixaban [Eliquis] 5 mg PO BID 11/06/24 02/12/25 Ergocalciferol (Vitamin D2) 1,250 mcg PO Q7D 11/06/24 02/12/25 [Drisdol (50,000 Iu)] Potassium Chloride ER [K-Dur 20] 20 meq PO DAILY 11/06/24 02/12/25 Donepezil 23mg 23 mg PO DAILY 02/12/25 02/12/25 Memantine [Namenda] 10 mg PO BID 02/12/25 02/12/25 QUEtiapine [SEROquel] 25 mg PO HS 02/12/25 02/12/25 Valsartan 320 mg PO DAILY 02/12/25 02/12/25 hydroCHLOROthiazide [Hydrodiuril] 25 mg PO DAILY 02/12/25 02/12/25 Allergies Allergy/AdvReac Type Severity Reaction Status Date / Time No Known Allergies Allergy Verified 02/12/25 13:58 Review of Systems ROS Statement: Those systems with pertinent positive or pertinent negative responses have been documented in the HPI. ROS Other: All systems not noted in ROS Statement are negative. Past Medical History Past Medical History: Atrial Fibrillation, Coronary Artery Disease (CAD), Cancer, Dementia, Hyperlipidemia, Hypertension, Myocardial Infarction ([place]) Additional Past Medical History / Comment(s): HX OF PROSTATE CANCER WITH RADIATION SEED IMPLANTS (2010). hx of colon polyps Last Myocardial Infarction Date:: 2011 History of Any Multi-Drug Resistant Organisms: None Reported Past Surgical History: Heart Catheterization With Stent Additional Past Surgical History / Comment(s): COLONOSCOPY. Past Anesthesia/Blood Transfusion Reactions: No Reported Reaction Date of Last Stent Placement:: 2011 Past Psychological History: No Psychological Hx Reported Smoking Status: Never smoker - Past Family History Mother Family Medical History: No Reported History Additional Family Medical History / Comment(s): . General Exam Limitations: altered mental status General appearance: alert, in no apparent distress Head exam: Present: atraumatic, normocephalic, normal inspection Eye exam: Present: normal appearance, PERRL, EOMI. Absent: scleral icterus, conjunctival injection, periorbital swelling Respiratory exam: Present: normal lung sounds bilaterally. Absent: respiratory distress, wheezes, rales, rhonchi, stridor Cardiovascular Exam: Present: regular rate, normal rhythm, normal heart sounds. Absent: systolic murmur, diastolic murmur, rubs, gallop, clicks GI/Abdominal exam: Present: soft, normal bowel sounds. Absent: distended, tenderness, guarding, rebound, rigid Extremities exam: Present: normal inspection, full ROM, normal capillary refill. Absent: tenderness, pedal edema, joint swelling, calf tenderness Neurological exam: Present: alert, CN II-XII intact, other (AxO x2) Skin exam: Present: warm, dry, intact, normal color. Absent: rash Course Vital Signs 02/12/25 02/12/25 02/12/25 10:06 14:10 15:37 Temperature 97.8 F Pulse Rate 57 L 63 95 Respiratory 18 15 16 Rate Blood Pressure 117/79 134/90 125/78 O2 Sat by Pulse 97 97 97 Oximetry EKG Findings - EKG Comments: EKG Findings:: EKG taken at 10: 14 showing a sinus rhythm. Inverted T waves in inferior lateral. No ST segment elevations or depressions. Ventricular rate 64, AR interval 152, QRS duration 120, QT/QTc 440/449. Medical Decision Making - Medical Decision Making Was pt. sent in by a medical professional or institution (JONATHAN Carr, SUPERVISOR TELEPHONE INFORMATION, urgent care, hospital, or group home...) When possible be specific @ -No Did you speak to anyone other than the patient for history (EMS, parent, family, police, friend...)? What history was obtained from this source @ -Patient's and EMS provided majority of HPI past medical history as patient has dementia. Did you review nursing and triage notes (agree or disagree)? Why? @ -I reviewed and agree with nursing and triage notes Were old charts reviewed (outside hosp., previous admission, EMS record, old EKG, old radiological studies, urgent care reports/EKG's, group home records)? Report findings @ -I reviewed ER records from [id number]. Differential Diagnosis (chest pain, altered mental status, abdominal pain women, abdominal pain men, vaginal bleeding, weakness, fever, dyspnea, syncope, headache, dizziness, GI bleed, back pain, seizure, CVA, palpatations, mental health, musculoskeletal)? @ -Differential Altered Mental Status:Hypoglycemia, DKA, hypercapnia, ETOH, overdose, CO poisoning, trauma, myxedema coma, HTN encephalopathy, infection, encephalitis, psychosis, intercranial hemorrhage, hepatic encephalopathy, meningitis, CVA, this is not meant to be an all-inclusive list EKG interpreted by me (3pts min.). @ -As above X-rays interpreted by me (1pt min.). @ -CXR interpreted me negative for focal consolidations, pneumothorax or pleural effusions. CT interpreted by me (1pt min.). @ -CT brain showing no acute intracranial hemorrhage, mass effect or midline shift. U/S interpreted by me (1pt. min.). @ -None done What testing was considered but not performed or refused? (CT, X-rays, U/S, labs)? Why? @ -None What meds were considered but not given or refused? Why? @ -None Did you discuss the management of the patient with other professionals (professionals i.e. JONATHAN Carr, SUPERVISOR TELEPHONE INFORMATION, lab, RT, psych nurse, social work instructor, farm equipment service technician, teacher, public health service officer, counter caser)? Give summary @ -Case discussed with case management to provide with outpatient resources Was smoking cessation discussed for >3mins.? @ -No Was critical care preformed (if so, how long)? @ -No Were there social determinants of health that impacted care today? How? (Homelessness, low income, unemployed, alcoholism, drug addiction, transportation, low edu. Level, literacy, decrease access to med. care, fdc, rehab)? @ -No Was there de-escalation of care discussed even if they declined (Discuss DNR or withdrawal of care, Hospice)? DNR status @ -No What co-morbidities impacted this encounter? (DM, HTN, Smoking, COPD, CAD, Cancer, CVA, ARF, Chemo, Hep., AIDS, mental health diagnosis, sleep apnea, morbid obesity)? @ -Dementia Was patient admitted / discharged? Hospital course, mention meds given and route, prescriptions, significant lab abnormalities, going to OR and other pertinent info. @ -Discharge. 70-year-old male presented to the ER via EMS for evaluation of altered mental status. Vitals within acceptable limits. Patient ANO x 2 this appears to be patient baseline, confirmed by . Laboratory studies obtained s howed a leukocytosis of 11.7 with a left shift. Hypokalemia at 3.3 this was supplemented. Kidney function appears to be at patient's baseline with a creatinine 1.3 and GFR 54. Troponin undetectable. Ammonia less than 9. Imaging completed in the ER negative for acute process. Urinalysis with trace protein. Patient given IV fluids in the emergency department. Case management spoke with patient's and provided outpatient resources and the possibility of assisted living given patient's dementia diagnosis. Patient is stable for discharge upon reevaluation, strict return parameters discussed. Patient discharged stable condition with follow-up to PCP. Patient and patient's verbally expressed understanding agree with care plan. Case discussed with ED attending, Dr. Bustos. Undiagnosed new problem with uncertain prognosis? @ -No Drug Therapy requiring intensive monitoring for toxicity (Heparin, Nitro, Insulin, Cardizem)? @ -No Were any procedures done? @ -No Diagnosis/symptom? @ -Dementia/hypokalemia Acute, or Chronic, or Acute on Chronic? @ -Acute Uncomplicated (without systemic symptoms) or Complicated (systemic symptoms)? @ -Uncomplicated Side effects of treatment? @ -No Exacerbation, Progression, or Severe Exacerbation? @ -No Poses a threat to life or bodily function? How? (Chest pain, USA, [place], pneumonia, PE, COPD, DKA, ARF, appy, cholecystitis, CVA, Diverticulitis, Homicidal, Suicidal, threat to staff... and all critical care pts) @ -No - Lab Data Result diagrams: 02/12/25 12:16 02/12/25 12:16 Lab Results 02/12/25 02/12/25 02/12/25 Range/Units 12:16 12:16 12:16 WBC 11.7 H (3.8-10.6) k/uL RBC 5.30 (4.30-5.90) m/uL Hgb 15.9 (13.0-17.5) gm/dL Hct 47.7 (39.0-53.0) % MCV 90.0 (80.0-100.0) fL MCH 30.1 (25.0-35.0) pg MCHC 33.4 (31.0-37.0) g/dL RDW 12.5 (11.5-15.5) % Plt Count 218 (150-450) k/uL MPV 7.2 Neutrophils % 81 % Lymphocytes % 13 % Monocytes % 5 % Eosinophils % 0 % Basophils % 0 % Neutrophils # 9.4 H (1.3-7.7) k/uL Lymphocytes # 1.5 (1.0-4.8) k/uL Monocytes # 0.6 (0-1.0) k/uL Eosinophils # 0.1 (0-0.7) k/uL Basophils # 0.1 (0-0.2) k/uL PT 11.4 (10.0-12.5) sec INR 1.0 (<1.2) APTT 22.3 (22.0-30.0) sec Sodium 141 (137-145) mmol/L Potassium 3.3 L (3.5-5.1) mmol/L Chloride 100 (98-107) mmol/L Carbon Dioxide 31 H (22-30) mmol/L Anion Gap 10 mmol/L BUN 23 H (9-20) mg/dL Creatinine 1.32 H (0.66-1.25) mg/dL Est GFR (CKD-EPI)AfAm 63 (>60 ml/min/1.73 sqM) Est GFR (CKD-EPI)NonAf 54 (>60 ml/min/1.73 sqM) Glucose 93 (74-99) mg/dL Calcium 9.3 (8.4-10.2) mg/dL Total Bilirubin 1.4 H (0.2-1.3) mg/dL AST 24 (17-59) U/L ALT 18 (4-49) U/L Alkaline Phosphatase 130 H (38-126) U/L Ammonia (<30) umol/L Troponin I (0.000-0.034) ng/mL Total Protein 6.9 (6.3-8.2) g/dL Albumin 4.3 (3.5-5.0) g/dL Urine Color Urine Appearance (Clear) Urine pH (5.0-8.0) Ur Specific [place] (1.001-1.035) Urine Protein (Negative) Urine Glucose (UA) (Negative) Urine Ketones (Negative) Urine Blood (Negative) Urine Nitrite (Negative) Urine Bilirubin (Negative) Urine Urobilinogen (<2.0) mg/dL Ur Leukocyte Esterase (Negative) 02/12/25 02/12/25 02/12/25 Range/Units 12:16 12:16 12:16 WBC (3.8-10.6) k/uL RBC (4.30-5.90) m/uL Hgb (13.0-17.5) gm/dL Hct (39.0-53.0) % MCV (80.0-100.0) fL MCH (25.0-35.0) pg MCHC (31.0-37.0) g/dL RDW (11.5-15.5) % Plt Count (150-450) k/uL MPV Neutrophils % % Lymphocytes % % Monocytes % % Eosinophils % % Basophils % % Neutrophils # (1.3-7.7) k/uL Lymphocytes # (1.0-4.8) k/uL Monocytes # (0-1.0) k/uL Eosinophils # (0-0.7) k/uL Basophils # (0-0.2) k/uL PT (10.0-12.5) sec INR (<1.2) APTT (22.0-30.0) sec Sodium (137-145) mmol/L Potassium (3.5-5.1) mmol/L Chloride (98-107) mmol/L Carbon Dioxide (22-30) mmol/L Anion Gap mmol/L BUN (9-20) mg/dL Creatinine (0.66-1.25) mg/dL Est GFR (CKD-EPI)AfAm (>60 ml/min/1.73 sqM) Est GFR (CKD-EPI)NonAf (>60 ml/min/1.73 sqM) Glucose (74-99) mg/dL Calcium (8.4-10.2) mg/dL Total Bilirubin (0.2-1.3) mg/dL AST (17-59) U/L ALT (4-49) U/L Alkaline Phosphatase (38-126) U/L Ammonia <9 (<30) umol/L Troponin I <0.012 (0.000-0.034) ng/mL Total Protein (6.3-8.2) g/dL Albumin (3.5-5.0) g/dL Urine Color Yellow Urine Appearance Clear (Clear) Urine pH 6.0 (5.0-8.0) Ur Specific [place] 1.026 (1.001-1.035) Urine Protein Trace H (Negative) Urine Glucose (UA) Negative (Negative) Urine Ketones Negative (Negative) Urine Blood Negative (Negative) Urine Nitrite Negative (Negative) Urine Bilirubin Negative (Negative) Urine Urobilinogen 2.0 (<2.0) mg/dL Ur Leukocyte Esterase Negative (Negative) - Radiology Data Radiology results: report reviewed, image reviewed Disposition Clinical Impression: Dementia, Hypokalemia Disposition: HOME SELF-CARE Condition: Stable Instructions (If sedation given, give patient instructions): Dementia (ED) Additional Instructions: Follow-up closely with PCP in the next 1 to 3 days. Return to the ER for any new or worsening concerns. Is patient prescribed a controlled substance at d/c from ED?: No Referrals: Yo Stack MD [Primary Care Provider] - 1-2 days [facility] [NON-STAFF] - As Soon As Possible (Contact for resources for private aid and help installing alarms. ) Forms: Adult Foster Jail List, Assisted Living Facilities, Community Resources, Help In The Home, Personal Director Payment Time of Disposition: 15:26
--- NOTE | 2025-02-12 11:59 | CT ---
EXAMINATION TYPE: CT brain wo con DATE OF EXAM: 02/12/2025 COMPARISON: 11/06/2024 CLINICAL INDICATION: Male, 70 years old with history of Altered mental status; PHH, AMS TECHNIQUE: CT of the brain performed without contrast with sagittal and coronal reformats. CT DLP: 1170.[address] CTDI: mGy Automated exposure control for dose reduction was used. FINDINGS: There is no acute intracranial hemorrhage, mass effect, or midline shift identified. The ventricles and sulci are within normal limits in size. The globes are intact and the visualized sinuses are lulú ar. IMPRESSION: No acute intracranial hemorrhage, mass effect, or midline shift is seen. [facility], , 02/12/2025 11:57 AM
[2025-02-12 12:27] LABS: Basophils # (A) 0.1 k/uL (0-0.2); Basophils % (A) 0 %; Eosinophils # (A) 0.1 k/uL (0-0.7); Eosinophils % (A) 0 %; HCT 47.7 % (39.0-53.0); HGB 15.9 gm/dL (13.0-17.5); Lymphocytes # (A) 1.5 k/uL (1.0-4.8); Lymphocytes % (A) 13 %; MCH 30.1 pg (25.0-35.0); MCHC 33.4 g/dL (31.0-37.0); Mean Platelet Volume 7.2; Monocytes # (A) 0.6 k/uL (0-1.0); Monocytes % (A) 5 %; Neutrophils # (A) 9.4 k/uL (1.3-7.7); Neutrophils % (A) 81 %; Platelet Count 218 k/uL (150-450); RDW 12.5 % (11.5-15.5); WBC 11.7 k/uL (3.8-10.6)
[2025-02-12 12:35] LABS: Partial Thromboplastin Time 22.3 sec (22.0-30.0); Prothrombin Time 11.4 sec (10.0-12.5)
[2025-02-12 12:38] LABS: ALT 18 U/L (4-49); AST 24 U/L (17-59); African American GFR (CKD) 63 (>60 ml/min/1.73 sqM); Albumin 4.3 g/dL (3.5-5.0); Alkaline Phosphatase 130 U/L (38-126); Anion Gap 10 mmol/L; Blood Urea Nitrogen 23 mg/dL (9-20); Calcium 9.3 mg/dL (8.4-10.2); Carbon Dioxide 31 mmol/L (22-30); Chloride 100 mmol/L (98-107); Glucose 93 mg/dL (74-99); Non-African American GFR(CKD) 54 (>60 ml/min/1.73 sqM); Potassium 3.3 mmol/L (3.5-5.1); Sodium 141 mmol/L (137-145); Total Bilirubin 1.4 mg/dL (0.2-1.3); Total Protein 6.9 g/dL (6.3-8.2)
--- NOTE | 2025-02-12 13:07 | XR ---
EXAMINATION TYPE: XR chest 2V DATE OF EXAM: 02/12/2025 1:01 PM COMPARISON: 11/06/2024 CLINICAL INDICATION: Male, 70 years old with history of altered mental status: Shortness of breath TECHNIQUE: XR chest 2V views of the chest are obtained. FINDINGS: Scattered senescent parenchymal changes noted. Hyperinflation compatible with COPD. No evidence for infiltrate. No evidence for atelectasis. Heart size is stable. Mediastinal structures are stable and grossly unremarkable. No evidence for hilar prominence. Degenerative changes dorsal spine. IMPRESSION: 1. No evidence for acute pulmonary disease. [facility], , 02/12/2025 1:05 PM
[2025-02-12] MEDS: SODIUM CHLORIDE 0.9% 500 ML 500 ML IV ONE (14:05)
[2025-02-12] MEDS: POTASSIUM CHLORIDE ER 20 MEQ TAB.ER PO STA ×2 (14:06→14:09)
[2025-02-12 15:17] LABS: Appearance,Urine Clear (Clear); Bilirubin,Urine Negative (Negative); Blood,Urine Negative (Negative); Color,Urine Yellow; Glucose,Urine (UA) Negative (Negative); Ketones,Urine Negative (Negative); Leukocyte Esterase,Urine Negative (Negative); Nitrite,Urine Negative (Negative); Protein,Urine Trace (Negative); Specific Gravity,Urine 1.026 (1.001-1.035)
[2025-02-12 15:39] VITALS: BP 125/78; PULSE 95; RESP 16
== END 2025-02-12 15:38 | disposition home or self-care (01) ==
LOC: EC 10:05
DX: E87.6 Hypokalemia (principal); F03.90 Unspecified dementia, unspecified severity, without behavioral disturbance, psychotic disturbance, mood disturbance, and anxiety
CPT/HCPCS: 36415; 70450; 71046; 80053; 81003; 82140; 84484; 85025; 85610; 85730; 93005; 96360; 99285

== ENCOUNTER 2025-02-13 10:53 | Inpatient (IN) | payer MEDICARE, OTHER ==
--- NOTE | 2025-02-13 12:17 | ED ---
General Adult HPI - General Chief complaint: Altered Mental Status Stated complaint: AMS Time Seen by Provider: 02/13/25 12:13 Source: patient, RN notes reviewed Mode of arrival: ambulatory Limitations: no limitations - History of Present Illness Initial comments: 70-year-old male presenting with and daughter for altered mental status. and daughter are at bedside and reports that patient has a history of dementia and has been found by the police wandering outside several times over the past week. Patient lives with his at home who is the primary caregiver. and daughter expressed safety concerns as the is not able to go to the restroom with outpatient leaving the house. Patient does not remember leaving the house. They also report he has had been having increased auditory hallucinations lately. They were seen in the ER yesterday where they underwent extensive workup and spoke with case management about possible placement options. Patient is at baseline per family. No medical complaints at this time. Denies chest pain, shortness of breath, headache. Other medical history includes atrial fibrillation, CAD, hyperlipidemia, and hypertension. - Related Data Home Medications Medication Instructions Recorded Confirmed Atorvastatin [Lipitor] 80 mg PO DAILY 04/13/16 02/12/25 Metoprolol Tartrate [Lopressor] 25 mg PO BID 04/13/16 02/12/25 amLODIPine [Norvasc] 10 mg PO DAILY 04/13/16 02/12/25 Ezetimibe [Zetia] 10 mg PO DAILY 04/19/21 02/12/25 Apixaban [Eliquis] 5 mg PO BID 11/06/24 02/12/25 Ergocalciferol (Vitamin D2) 1,250 mcg PO Q7D 11/06/24 02/12/25 [Drisdol (50,000 Iu)] Potassium Chloride ER [K-Dur 20] 20 meq PO DAILY 11/06/24 02/12/25 Donepezil 23mg 23 mg PO DAILY 02/12/25 02/12/25 Memantine [Namenda] 10 mg PO BID 02/12/25 02/12/25 QUEtiapine [SEROquel] 25 mg PO HS 02/12/25 02/12/25 Valsartan 320 mg PO DAILY 02/12/25 02/12/25 hydroCHLOROthiazide [Hydrodiuril] 25 mg PO DAILY 02/12/25 02/12/25 Allergies Allergy/AdvReac Type Severity Reaction Status Date / Time No Known Allergies Allergy Verified 02/12/25 13:58 Review of Systems ROS Statement: Those systems with pertinent positive or pertinent negative responses have been documented in the HPI. ROS Other: All systems not noted in ROS Statement are negative. Past Medical History Past Medical History: Atrial Fibrillation, Coronary Artery Disease (CAD), Cancer, Dementia, Hyperlipidemia, Hypertension, Myocardial Infarction ([place]) Additional Past Medical History / Comment(s): HX OF PROSTATE CANCER WITH RADIATION SEED IMPLANTS (2010). hx of colon polyps Last Myocardial Infarction Date:: 2011 History of Any Multi-Drug Resistant Organisms: None Reported Past Surgical History: Heart Catheterization With Stent Additional Past Surgical History / Comment(s): COLONOSCOPY. Past Anesthesia/Blood Transfusion Reactions: No Reported Reaction Date of Last Stent Placement:: 2011 Past Psychological History: No Psychological Hx Reported Smoking Status: Never smoker - Past Family History Mother Family Medical History: No Reported History Additional Family Medical History / Comment(s): . General Exam General appearance: alert, in no apparent distress, other (A and O x 2, at baseline per family) Head exam: Present: atraumatic, normocephalic, normal inspection Respiratory exam: Present: normal lung sounds bilaterally. Absent: respiratory distress, wheezes, rales, rhonchi, stridor Cardiovascular Exam: Present: regular rate, normal rhythm, normal heart sounds. Absent: systolic murmur, diastolic murmur, rubs, gallop, clicks Neurological exam: Present: alert, CN II-XII intact. Absent: oriented X3 (Oriented x 2 at baseline per family) Psychiatric exam: Present: normal affect, normal mood (Patient is tearful on exam) Skin exam: Present: warm, dry, intact, normal color. Absent: rash Course Vital Signs 02/13/25 11:01 Temperature 97.5 F L Pulse Rate 51 L Respiratory 17 Rate Blood Pressure 142/88 O2 Sat by Pulse 97 Oximetry Medical Decision Making - Medical Decision Making Was pt. sent in by a medical professional or institution (, PA, MACHINE BOOKKEEPER, urgent care, hospital, or retirement...) When possible be specific @ -No Did you speak to anyone other than the patient for history (EMS, parent, family, police, friend...)? What history was obtained from this source @ - and daughter provided history Did you review nursing and triage notes (agree or disagree)? Why? @ -I reviewed and agree with nursing and triage notes Were old charts reviewed (outside hosp., previous admission, EMS record, old EKG, old radiological studies, urgent care reports/EKG's, retirement records)? Report findings @ -ER chart from yesterday reviewed including lab work, chest x-ray and CT of brain negative for acute process Differential Diagnosis (chest pain, altered mental status, abdominal pain women, abdominal pain men, vaginal bleeding, weakness, fever, dyspnea, syncope, headache, dizziness, GI bleed, back pain, seizure, CVA, palpatations, mental health, musculoskeletal)? @ -Differential Altered Mental Status: Hypoglycemia, DKA, hypercapnia, ETOH, overdose, CO poisoning, trauma, myxedema coma, HTN encephalopathy, infection, encephalitis, psychosis, intercranial hemorrhage, hepatic encephalopathy, meningitis, CVA, this is not meant to be an all-inclusive list EKG interpreted by me (3pts min.). @ -None X-rays interpreted by me (1pt min.). @ -None done CT interpreted by me (1pt min.). @ -None done U/S interpreted by me (1pt. min.). @ -None done What testing was considered but not performed or refused? (CT, X-rays, U/S, labs)? Why? @ -CT brain and chest x-ray deferred as they were performed yesterday in the ER. What meds were considered but not given or refused? Why? @ -None Did you discuss the management of the patient with other professionals (professionals i.e. , PA, MACHINE BOOKKEEPER, lab, RT, psych nurse, geriatric social work professor, insights analyst, teacher, strike warfare/missile systems officer, case management associate)? Give summary @ -I spoke with Dr. Juarez who accepts admission Was smoking cessation discussed for >3mins.? @ -No Was critical care preformed (if so, how long)? @ -No Were there social determinants of health that impacted care today? How? (Homelessness, low income, unemployed, alcoholism, drug addiction, transportation, low edu. Level, literacy, decrease access to med. care, prison, rehab)? @ -No Was there de-escalation of care discussed even if they declined (Discuss DNR or withdrawal of care, Hospice)? DNR status @ -No What co-morbidities impacted this encounter? (DM, HTN, Smoking, COPD, CAD, Cancer, CVA, ARF, Chemo, Hep., AIDS, mental health diagnosis, sleep apnea, morbid obesity)? @ -Dementia Was patient admitted / discharged? Hospital course, mention meds given and route, prescriptions, significant lab abnormalities, going to OR and other pertinent info. @ -Admitted. 70-year-old male presenting for altered mental status. Patient has history of dementia and lives at home with who is primary caregiver. Family is concerned for safety as patient is leaving the home and has been found wandering several times by the police. Patient denies any medical complaints at this time. Patient was seen in the ER yesterday and had full workup including lab work, CT brain, chest x-ray, and urinalysis which revealed mild hypokalemia which is chronic for patient taking supplements at home, otherwise negative. They spoke with case management yesterday regarding possible placement. Patient will be admitted to medicine for possible placement. Case was discussed with my ED attending Dr. Suresh. Undiagnosed new problem with uncertain prognosis? @ -No Drug Therapy requiring intensive monitoring for toxicity (Heparin, Nitro, Insulin, Cardizem)? @ -No Were any procedures done? @ -No Diagnosis/symptom? @ -Altered mental status, hypokalemia Acute, or Chronic, or Acute on Chronic? @ -Acute Uncomplicated (without systemic symptoms) or Complicated (systemic symptoms)? @ -Complicated Side effects of treatment? @ -No Exacerbation, Progression, or Severe Exacerbation? @ -No Poses a threat to life or bodily function? How? (Chest pain, [place], [place], pneumonia, PE, COPD, DKA, ARF, appy, cholecystitis, CVA, Diverticulitis, Homicidal, Suicid al, threat to staff... and all critical care pts) @ -Possibly Disposition Clinical Impression: Altered mental status, Hypokalemia Disposition: ADMITTED IP TO THIS HOSP Referrals: Yo Stack MD [Primary Care Provider] - 1-2 days Time of Disposition: 12:35
[2025-02-13] MEDS ORDERED: oxyCODONE-APAP 5-325MG 1 EACH TAB PO PRN (12:33)
[2025-02-13] MEDS ORDERED: NALOXONE 0.4 MG/ML 1 ML VIAL IV PRN (12:33)
[2025-02-13] MEDS ORDERED: Acetaminophen-Codeine 300-30mg TAB PO PRN (12:33)
[2025-02-13] MEDS ORDERED: ONDANSETRON 4 MG/2 ML VIAL IVP PRN (12:33)
[2025-02-13] MEDS ORDERED: ACETAMINOPHEN TAB 325 MG TAB PO PRN (12:33)
[2025-02-13 14:14] LABS: Basophils # (A) 0.1 k/uL (0-0.2); Basophils % (A) 0 %; Eosinophils # (A) 0.1 k/uL (0-0.7); Eosinophils % (A) 0 %; Lymphocytes # (A) 1.8 k/uL (1.0-4.8); Lymphocytes % (A) 15 %; MCH 30.5 pg (25.0-35.0); MCV 89.7 fL (80.0-100.0); Mean Platelet Volume 6.9; Monocytes # (A) 0.5 k/uL (0-1.0); Monocytes % (A) 4 %; Neutrophils # (A) 9.8 k/uL (1.3-7.7); Neutrophils % (A) 80 %; Platelet Count 230 k/uL (150-450); RBC 5.57 m/uL (4.30-5.90); RDW 12.3 % (11.5-15.5); WBC 12.2 k/uL (3.8-10.6)
[2025-02-13 14:23] LABS: ALT 21 U/L (4-49); AST 26 U/L (17-59); African American GFR (CKD) 72 (>60 ml/min/1.73 sqM); Albumin 4.7 g/dL (3.5-5.0); Alkaline Phosphatase 152 U/L (38-126); Anion Gap 9 mmol/L; Blood Urea Nitrogen 19 mg/dL (9-20); Calcium 9.6 mg/dL (8.4-10.2); Carbon Dioxide 33 mmol/L (22-30); Chloride 101 mmol/L (98-107); Glucose 95 mg/dL (74-99); Non-African American GFR(CKD) 62 (>60 ml/min/1.73 sqM); Potassium 3.4 mmol/L (3.5-5.1); Sodium 143 mmol/L (137-145); Total Bilirubin 1.6 mg/dL (0.2-1.3); Total Protein 7.6 g/dL (6.3-8.2)
[2025-02-13] MEDS: QUEtiapine 25 MG TAB PO STA (16:49)
[2025-02-13] MEDS ORDERED: HALOPERIDOL LACTATE 5 MG/ML 1 ML VIAL IVP PRN (17:41)
[2025-02-13 18:59] LABS: Appearance,Urine Clear (Clear); Bilirubin,Urine Negative (Negative); Blood,Urine Negative (Negative); Color,Urine Yellow; Glucose,Urine (UA) Negative (Negative); Ketones,Urine Negative (Negative); Leukocyte Esterase,Urine Negative (Negative); Nitrite,Urine Negative (Negative); Protein,Urine Negative (Negative); Specific Gravity,Urine 1.021 (1.001-1.035); Urobilinogen,Urine <2.0 mg/dL (<2.0)
[2025-02-13 19:21] LABS: Influenza A Not Detected (Not Detectd); Influenza B Not Detected (Not Detectd); RSV Not Detected (Not Detectd)
[2025-02-13] MEDS: APIXABAN 5 MG TAB PO SCH (21:25)
[2025-02-13] MEDS: METOPROLOL TARTRATE 25 MG TAB PO SCH (21:25)
[2025-02-13] MEDS: MEMANTINE 10 MG TAB PO SCH (21:25)
[2025-02-13] MEDS: QUEtiapine 25 MG TAB PO SCH (22:04)
--- NOTE | 2025-02-14 04:51 | HP ---
HISTORY AND PHYSICAL CHIEF COMPLAINT: Change in mental status. HISTORY OF PRESENT ILLNESS: This 70-year-old gentleman with a past medical history of worsened dementia was taken yesterday to [facility], but currently the patient was found to be wandering by the police, and the patient has been out several times during the last week, and the patient also has a history of Parkinson's. The patient also had increasing hallucinations also. The patient was admitted for evaluation and treatment. The patient is unable to provide a coherent history. Most of the history taken by discussion with the staff and review of the chart at this time. The CT scan showed no acute deficit. PAST MEDICAL HISTORY: History of dementia, atrial fibrillation. The rest of the history and chart is also reviewed. HOME MEDICATIONS: Reviewed and include HydroDIURIL, dose and rest of the medications reviewed. ALLERGIES: None. FAMILY HISTORY: No history of heart disease or strokes in the family. SOCIAL HISTORY: No history of smoking or alcohol. REVIEW OF SYSTEMS: Could not be taken. PHYSICAL EXAM: VITAL SIGNS: Pulse is 51, blood pressure 143/88, respirations 17. HEENT: Conjunctivae normal. NECK: No JVD. CARDIOVASCULAR: S1, S2. RESPIRATORY: Breath sounds diminished at the bases. Few scattered rhonchi. No crackles. ABDOMEN: Soft and nontender. LEGS: No edema. NERVOUS SYSTEM: Diffuse tremors present diffusely. Full exam is not possible. PSYCHIATRIC: The patient is completely confused and wandering around the room. LABORATORY DATA: WBC 3.2. Potassium 3.4. ASSESSMENT: 1. Dementia with behavioral changes. 2. Metabolic encephalopathy, possibly acute toxic encephalopathy. 3. Atrial fibrillation. 4. Hypertension. 5. Hyperlipidemia. 6. History of myocardial infarction. 7. History of prostate cancer with radiation. RECOMMENDATIONS AND DISCUSSION: In this 70-year-old gentleman presented with multiple complex medical issues, we will monitor the patient closely, continue the current management and symptomatic treatment. I would also recommend marian Elder. Psych consultation. PT/OT evaluation, possible ECF rehab. Prognosis is guarded. Further recommendations to follow. I would also recommend UA with micro as well as viral titers also. See orders for further details. MMODL / IJN: [id number] /
[2025-02-14] MEDS: VALSARTAN 160 MG TAB PO SCH (08:23)
[2025-02-14] MEDS: DONEPEZIL 10 MG TAB PO SCH (08:23)
[2025-02-14] MEDS: amLODIPine 10 MG TAB PO SCH (08:23)
[2025-02-14] MEDS: ERGOCALCIFEROL 1,250 MCG (50,000 IU) CAPSULE PO SCH (08:23)
[2025-02-14] MEDS: EZETIMIBE 10 MG TAB PO SCH (08:24)
[2025-02-14] MEDS: ATORVASTATIN 80 MG TAB PO SCH (08:24)
[2025-02-14] MEDS: POTASSIUM CHLORIDE ER 20 MEQ TAB.ER PO SCH ×2 (08:24→17:49)
[2025-02-14] MEDS: hydroCHLOROthiazide 25 MG TAB PO SCH (08:24)
[2025-02-14 09:19] LABS: Basophils # (A) 0.04 X 10*3/uL (0.00-0.10); Basophils % (A) 0.4 %; Eosinophils % (A) 1.1 %; HCT 39.3 % (39.6-50.0); HGB 13.5 g/dL (13.0-17.0); Lymphocytes % (A) 24.3 %; MCH 30.8 pg (27.0-32.0); MCHC 34.4 g/dL (32.0-37.0); MCV 89.7 FL (80.0-97.0); Mean Platelet Volume 9.6 FL (9.5-12.2); Monocytes # (A) 0.75 X 10*3/uL (0.20-1.00); Monocytes % (A) 8.3 %; NRBC Per 100 WBC 0 X 10*3/uL (0.00-0.01); Neutrophils # (A) 5.95 X 10*3/uL (1.80-7.70); Neutrophils % (A) 65.6 %; Platelet Count 170 X 10*3/uL (140-440); RBC 4.38 X 10*6/uL (4.40-5.60); RDW 12.1 % (11.5-14.5); WBC 9.07 X 10*3/uL (4.50-10.00)
[2025-02-14 09:41] LABS: BUN/Creat Ratio 15.64 Ratio (12.00-20.00); Blood Urea Nitrogen 17.2 mg/dL (9.0-27.0); Carbon Dioxide 29.9 mmol/L (21.6-31.8); Chloride 106 mmol/L (96-109); Glucose 126 mg/dL (70-110); Potassium 3.2 mmol/L (3.5-5.5); Sodium 144 mmol/L (135-145)
[2025-02-14 09:42] LABS: Calcium 8.5 mg/dL (8.7-10.3)
[2025-02-14] MEDS ORDERED: HALOPERIDOL LACTATE 5 MG/ML 1 ML VIAL IM PRN (16:07)
[2025-02-14] MEDS ORDERED: Magnesium Replacement Protocol 1 EACH MISC MISCELLANE PRN (16:10)
[2025-02-14] MEDS ORDERED: Potassium Replacement Protocol 1 EACH MISC MISCELLANE PRN (16:10)
--- NOTE | 2025-02-14 22:33 | PN ---
PROGRESS NOTE DATE OF SERVICE: 02/14/2025 SUBJECTIVE: This 70-year-old gentleman admitted with dementia and behavioral abnormalities, improved with Seroquel. The patient continues to be confused. PHYSICAL EXAMINATION: VITAL SIGNS: Pulse 54, blood pressure 143/84, and respirations 16. CHEST: Clear to auscultation. CARDIOVASCULAR: S1, S2. Abdomen soft. LABORATORY DATA: WBC 9.07, rest of the labs are noted. ASSESSMENT: 1. Dementia with behavioral changes. 2. Metabolic encephalopathy, possible acute toxic encephalopathy. 3. Atrial fibrillation. 4. Multiple complex medical issues. RECOMMENDATIONS: Recommend to continue current management and continue symptomatic treatment. Repeat labs. Otherwise, the patient is not improving. ECF placement. Further recommendations to follow. MMODL / IJN: [id number] /
[2025-02-15 08:40] LABS: Basophils # (A) 0.04 X 10*3/uL (0.00-0.10); Basophils % (A) 0.4 %; Eosinophils # (A) 0.16 X 10*3/uL (0.04-0.35); Eosinophils % (A) 1.7 %; HCT 41.6 % (39.6-50.0); HGB 14.3 g/dL (13.0-17.0); Lymphocytes # (A) 2.71 X 10*3/uL (0.90-5.00); Lymphocytes % (A) 28.1 %; MCHC 34.4 g/dL (32.0-37.0); Mean Platelet Volume 9.6 FL (9.5-12.2); Monocytes % (A) 7.3 %; NRBC Per 100 WBC 0 X 10*3/uL (0.00-0.01); Neutrophils # (A) 5.99 X 10*3/uL (1.80-7.70); Neutrophils % (A) 62.2 %; Platelet Count 179 X 10*3/uL (140-440); RBC 4.62 X 10*6/uL (4.40-5.60); RDW 12.1 % (11.5-14.5); WBC 9.63 X 10*3/uL (4.50-10.00)
[2025-02-15 09:31] LABS: BUN/Creat Ratio 14.82 Ratio (12.00-20.00); Blood Urea Nitrogen 16.3 mg/dL (9.0-27.0); Calcium 8.8 mg/dL (8.7-10.3); Carbon Dioxide 27.5 mmol/L (21.6-31.8); Chloride 107 mmol/L (96-109); Glucose 92 mg/dL (70-110); Magnesium 1.7 mg/dL (1.5-2.4); Potassium 3.5 mmol/L (3.5-5.5); Sodium 145 mmol/L (135-145)
[2025-02-15 13:48] VITALS: BMI 34.3
[2025-02-15] MEDS: QUEtiapine 25 MG TAB PO SCH (16:14)
[2025-02-15] MEDS: ALPRAZolam 0.25 MG TAB PO STA (16:14)
[2025-02-16 08:52] LABS: BUN/Creat Ratio 16.67 Ratio (12.00-20.00); Calcium 8.8 mg/dL (8.7-10.3); Carbon Dioxide 28.5 mmol/L (21.6-31.8); Chloride 106 mmol/L (96-109); Glucose 98 mg/dL (70-110); Magnesium 1.7 mg/dL (1.5-2.4); Potassium 3.4 mmol/L (3.5-5.5); Sodium 144 mmol/L (135-145)
[2025-02-16] MEDS ORDERED: Potassium Replacement Protocol 1 EACH MISC MISCELLANE PRN (09:25)
--- NOTE | 2025-02-16 09:29 | P.PN ---
Subjective Progress Note Date: 02/15/25 This is a 70-year-old male who was admitted with behavioral disturbances with ongoing dementia with progressive dementia showing some improvements with Seroquel. Patient continues to be confused with at the bedside and is quite anxious at times and impulsive wanting to get up and go home. Had a l engthy discussion with the patient's at the bedside who reports is a wanderer and will leave the home and has been brought back by police multiple times to the home as he was waving down traffic and altered and confused. Patient is looking into possible [facility] or memory care unit and will consult social work to assist with this. Patient currently has a sitter at the bedside for safety and will continue for now. Patient is afebrile denies chest pain or shortness of breath. is not able to take care of him given his ongoing aggression, agitation, and wandering and he is unsafe. Review of systems: Constitutional: No reports of fatigue, fever, or chills Cardiovascular: No reports of chest pain or palpitations Respiratory: No reports of shortness of breath or cough GI: No reports of nausea, no reports of vomiting, no diarrhea : No reports of dysuria or retention Neurovascular: No reports of generalized weakness All medications have been reviewed PHYSICAL EXAMINATION: GENERAL: The patient is alert and oriented x 12, baseline elderly appearing, anxious, obese well developed, well nourished. HEENT: Pupils are round and equally reacting to light. EOMI. no scleral icterus. No conjunctival pallor. Normocephalic, atraumatic. No pharyngeal erythema. No thyromegaly. CARDIOVASCULAR: S1 and S2 muffled PULMONARY: diminished breath sounds bilaterally with no wheezing or rhonchi noted. ABDOMEN: soft. Nontender on exam. obese. non-distended, normoactive bowel sounds. No palpable organomegaly. MUSCULOSKELETAL: No joint swelling or deformity. EXTREMITIES: No cyanosis, clubbing, or pedal edema. NEUROLOGICAL: Gross neurological examination did not reveal any focal deficits. Confused. Diffuse weakness SKIN: No rashes. Assessment: Dementia with behavioral changes, progressive dementia Metabolic encephalopathy, possible acute toxic encephalopathy Atrial fibrillation history History of coronary artery disease History of prostate cancer in 2010 History of hyperlipidemia History of hypertension GI prophylaxis DVT prophylaxis Full code Plan: Recommend to continue with current medications and social work consulted to assist with possible memory care unit placement. Patient was inquiring about [facility] and will appreciate input and recommendations from social work Patient currently requiring a sitter for safety as he is impulsive and likes to get up frequently and wanders and will continue for now Increase Seroquel to twice daily as patient does get anxious and agitated at times Follow-up on repeat labs and replace electrolytes per protocol Continue to encourage small frequent meals and supervision with meals Social work consulted and recommends urgent Medicaid application which was discussed with at the bedside Overall prognosis is guarded at this time. Patient was evaluated by physical therapy and did well with walking and would not qualify for [facility] The impression and plan of care has been dictated by Kathia Stringer, nurse practitioner as directed. Dr. More MD I have performed a history and examination and MDM of this patient, discussed the same with the dictator, and agree with the dictator's assessment and plan as written ,documented as a scribe. Based on total visit time, I have performed more than 50% of the visit. Any additional findings or plans will be noted. Objective - Vital Signs Vital signs: Vital Signs Temp 97.3 F L 02/15/25 07:00 Pulse 53 L 02/15/25 07:00 Resp 16 02/15/25 07:00 BP 129/82 02/15/25 07:00 Pulse Ox 98 02/15/25 07:00 FiO2 Intake & Output 02/14/25 02/15/25 02/15/25 18:59 06:59 18:59 Intake Total 236 118 Balance 236 118 Intake: Oral 236 118 Other: Voiding Method Toilet Toilet # Voids 2 2 - Labs CBC & Chem 7: 02/18/25 05:06 02/18/25 05:06
[2025-02-16] MEDS: POTASSIUM CHLORIDE ER 20 MEQ TAB.ER PO SCH (11:15)
[2025-02-16] MEDS: ALPRAZolam 0.5 MG TAB PO PRN (18:36)
[2025-02-17] MEDS: POTASSIUM CHLORIDE ER 10 MEQ TAB.ER.PRT PO STA (15:58)
[2025-02-18 08:43] LABS: Basophils # (A) 0.06 X 10*3/uL (0.00-0.10); Basophils % (A) 0.7 %; Eosinophils # (A) 0.16 X 10*3/uL (0.04-0.35); Eosinophils % (A) 1.9 %; HCT 40.4 % (39.6-50.0); HGB 13.6 g/dL (13.0-17.0); Lymphocytes # (A) 2.63 X 10*3/uL (0.90-5.00); MCH 31.2 pg (27.0-32.0); MCHC 33.7 g/dL (32.0-37.0); MCV 92.7 FL (80.0-97.0); Mean Platelet Volume 9.7 FL (9.5-12.2); Monocytes # (A) 0.58 X 10*3/uL (0.20-1.00); Monocytes % (A) 7.1 %; NRBC Per 100 WBC 0 X 10*3/uL (0.00-0.01); Neutrophils # (A) 4.76 X 10*3/uL (1.80-7.70); Neutrophils % (A) 57.9 %; Platelet Count 163 X 10*3/uL (140-440); RBC 4.36 X 10*6/uL (4.40-5.60); WBC 8.22 X 10*3/uL (4.50-10.00)
[2025-02-18 09:01] LABS: Blood Urea Nitrogen 18.7 mg/dL (9.0-27.0); Calcium 8.4 mg/dL (8.7-10.3); Carbon Dioxide 25.9 mmol/L (21.6-31.8); Chloride 107 mmol/L (96-109); Glucose 104 mg/dL (70-110); Potassium 3.6 mmol/L (3.5-5.5); Sodium 144 mmol/L (135-145)
--- NOTE | 2025-02-19 15:59 | P.PN ---
Subjective Progress Note Date: 02/16/25 70-year-old male who was admitted with behavioral disturbances with ongoing dementia with progressive dementia showing some improvements with Seroquel. Patient continues to be confused with at the bedside and is quite anxious at times and impulsive wanting to get up and go home. Had a lengthy discussion with the patient's at the bedside who reports is a wanderer and will leave the home and has been brought back by police multiple times to the home as he was waving down traffic and altered and confused. Patient is looking into possible [facility] or [facility] unit and will consult social work to assist with this. Patient currently has a sitter at the bedside for safety and will continue for now. Patient is afebrile denies chest pain or shortness of breath. is not able to take care of him given his ongoing aggression, agitation, and wandering and he is unsafe. Objective - Vital Signs Vital signs: Vital Signs Temp 97.7 F 02/16/25 07:00 Pulse 55 L 02/16/25 07:00 Resp 16 02/16/25 07:00 BP 142/87 02/16/25 07:00 Pulse Ox 94 L 02/16/25 01:09 FiO2 Intake & Output 02/15/25 02/16/25 02/16/25 18:59 06:59 18:59 Intake Total 354 118 Balance 354 118 Weight 96.615 kg Intake: Oral 354 118 Other: Voiding Method Toilet Toilet Toilet # Voids 3 2 - Exam GENERAL: The patient is alert and oriented x 12, baseline elderly appearing, anxious, obese well developed, well nourished. HEENT: Pupils are round and equally reacting to light. EOMI. no scleral icterus. No conjunctival pallor. Normocephalic, atraumatic. No pharyngeal erythema. No thyromegaly. CARDIOVASCULAR: S1 and S2 muffled PULMONARY: diminished breath sounds bilaterally with no wheezing or rhonchi noted. ABDOMEN: soft. Nontender on exam. obese. non-distended, normoactive bowel sounds. No palpable organomegaly. MUSCULOSKELETAL: No joint swelling or deformity. EXTREMITIES: No cyanosis, clubbing, or pedal edema. NEUROLOGICAL: Gross neurological examination did not reveal any focal deficits. Confused. Diffuse weakness SKIN: No rashes. - Labs CBC & Chem 7: 02/18/25 05:06 02/18/25 05:06 Labs: Abnormal Lab Results - Last 24 Hours (Table) 02/16/25 Range/Units 05:30 Potassium 3.4 L (3.5-5.5) mmol/L Assessment and Plan Assessment: Dementia with behavioral changes, progressive dementia Metabolic encephalopathy, possible acute toxic encephalopathy Atrial fibrillation history History of coronary artery disease History of prostate cancer in 2010 History of hyperlipidemia History of hypertension GI prophylaxis DVT prophylaxis Full code Plan: Recommend to continue with current medications and social work consulted to assist with possible memory care unit placement. Patient was inquiring about [employer] and will appreciate input and recommendations from social work Patient currently requiring a sitter for safety as he is impulsive and likes to get up frequently and wanders and will continue for now Increase Seroquel to twice daily as patient does get anxious and agitated at nic es Follow-up on repeat labs and replace electrolytes per protocol Continue to encourage small frequent meals and supervision with meals Social work consulted and recommends urgent Medicaid application which was discussed with at the bedside Overall prognosis is guarded at this time. Patient was evaluated by physical therapy and did well with walking and would not qualify for long-term
--- NOTE | 2025-02-19 16:02 | P.PN ---
Subjective Progress Note Date: 02/17/25 70-year-old male who was admitted with behavioral disturbances with ongoing dementia with progressive dementia showing some improvements with Seroquel. Patient continues to be confused with at the bedside and is quite anxious at times and impulsive wanting to get up and go home. Had a lengthy discussion with the patient's at the bedside who reports is a wanderer and will leave the home and has been brought back by police multiple times to the home as he was waving down traffic and altered and confused. Patient is looking into possible [facility] or memory [facility] and will consult social work to assist with this. Patient currently has a sitter at the bedside for safety and will continue for now. Patient is afebrile denies chest pain or shortness of breath. is not able to take care of him given his ongoing aggression, agitation, and wandering and he is unsafe. 02/17/2025 Patient is seen and evaluated with family members at bedside; patient is resting comfortably in bed; no specific complaints reported Vital signs are reviewed and remained stable Blood work from yesterday revealed sodium of 144, potassium 3.4, BUNs/creatinine of 20/1.2 -Vital screen has been consistently negative -Patient admitted with mental status changes related to toxic metabolic encephalopathy--resolved -Patient is currently at baseline Discharge planning in progress Objective - Vital Signs Vital signs: Vital Signs Temp 98 F 02/17/25 18:55 Pulse 66 02/17/25 18:55 Resp 18 02/17/25 18:55 BP 109/65 02/17/25 18:55 Pulse Ox 96 02/17/25 18:55 FiO2 Intake & Output 02/17/25 02/17/25 02/18/25 06:59 18:59 06:59 Intake Total 358 Balance 358 Intake: Oral 358 Other: Voiding Method Toilet # Voids 4 - Exam GENERAL: The patient is alert and oriented x 12, baseline elderly appearing, anxious, obese well developed, well nourished. HEENT: Pupils are round and equally reacting to light. EOMI. no scleral icterus. No conjunctival pallor. Normocephalic, atraumatic. No pharyngeal erythema. No thyromegaly. CARDIOVASCULAR: S1 and S2 muffled PULMONARY: diminished breath sounds bilaterally with no wheezing or rhonchi noted. ABDOMEN: soft. Nontender on exam. obese. non-distended, normoactive bowel sounds. No palpable organomegaly. MUSCULOSKELETAL: No joint swelling or deformity. EXTREMITIES: No cyanosis, clubbing, or pedal edema. NEUROLOGICAL: Gross neurological examination did not reveal any focal deficits. Confused. Diffuse weakness SKIN: No rashes. - Labs CBC & Chem 7: 02/18/25 05:06 02/18/25 05:06 Assessment and Plan Assessment: Dementia with behavioral changes, progressive dementia Metabolic encephalopathy, possible acute toxic encephalopathy Atrial fibrillation history History of coronary artery disease History of prostate cancer in 2010 History of hyperlipidemia History of hypertension GI prophylaxis DVT prophylaxis Full code Plan: Recommend to continue with current medications and social work consulted to assist with possible memory care unit placement. Patient was inquiring about [employer] and will appreciate input and recommendations from social work Patient currently requiring a sitter for safety as he is impulsive and likes to get up frequently and wanders and will continue for now Increase Seroquel to twice daily as patient does get anxious and agitated at times Follow-up on repeat labs and replace electrolytes per protocol Continue to encourage small frequent meals and supervision with meals Social work consulted and recommends urgent Medicaid application which was discussed with at the bedside Overall prognosis is guarded at this time. Patient was evaluated by physical therapy and did well with walking and would not qualify for residential
--- NOTE | 2025-02-19 16:05 | P.PN ---
Subjective Progress Note Date: 02/18/25 70-year-old male who was admitted with behavioral disturbances with ongoing dementia with progressive dementia showing some improvements with Seroquel. Patient continues to be confused with at the bedside and is quite anxious at times and impulsive wanting to get up and go home. Had a lengthy discussion with the patient's at the bedside who reports is a wanderer and will leave the home and has been brought back by police multiple times to the home as he was waving down traffic and altered and confused. Patient is looking into possible [facility] or [facility] and will consult social work to assist with this. Patient currently has a sitter at the bedside for safety and will continue for now. Patient is afebrile denies chest pain or shortness of breath. is not able to take care of him given his ongoing aggression, agitation, and wandering and he is unsafe. 02/17/2025 Patient is seen and evaluated with family members at bedside; patient is resting comfortably in bed; no specific complaints reported Vital signs are reviewed and remained stable Blood work from yesterday revealed sodium of 144, potassium 3.4, BUNs/creatinine of 20/1.2 -Vital screen has been consistently negative -Patient admitted with mental status changes related to toxic metabolic encephalopathy--resolved -Patient is currently at baseline Discharge planning in progress 02/18/2025 Patient is sitting up in bed; denies any complaint of chest pain or shortness of breath; discussed with nursing staff and case management -Placement in progress; patient could be accepted at [facility] pending 3 night inpatient hospital stay; plan for possible discharge in next 24 hours Blood work reveals WBC of 8.2, hemoglobin of 13.6 and platelet count of 163, sodium 144, potassium 3.6, BUNs/creatinine of 18.7/1.1 -Patient is clinically stable for discharge Objective - Vital Signs Vital signs: Vital Signs Temp 97.7 F 02/18/25 08:00 Pulse 62 02/18/25 08:00 Resp 16 02/18/25 08:00 BP 128/87 02/18/25 08:00 Pulse Ox 97 02/18/25 08:00 FiO2 Intake & Output 02/17/25 02/18/25 02/18/25 18:59 06:59 18:59 Intake Total 358 118 Balance 358 118 Intake: Oral 358 118 Other: Voiding Method Toilet # Voids 4 3 - Exam GENERAL: The patient is alert and oriented x 12, baseline elderly appearing, anxious, obese well developed, well nourished. HEENT: Pupils are round and equally reacting to light. EOMI. no scleral icterus. No conjunctival pallor. Normocephalic, atraumatic. No pharyngeal erythema. No thyromegaly. CARDIOVASCULAR: S1 and S2 muffled PULMONARY: diminished breath sounds bilaterally with no wheezing or rhonchi noted. ABDOMEN: soft. Nontender on exam. obese. non-distended, normoactive bowel sounds. No palpable organomegaly. MUSCULOSKELETAL: No joint swelling or deformity. EXTREMITIES: No cyanosis, clubbing, or pedal edema. NEUROLOGICAL: Gross neurological examination did not reveal any focal deficits. Confused. Diffuse weakness SKIN: No rashes. - Labs CBC & Chem 7: 02/18/25 05:06 02/18/25 05:06 Labs: Abnormal Lab Results - Last 24 Hours (Table) 02/18/25 02/18/25 Range/Units 05:06 05:06 RBC 4.36 L (4.40-5.60) X 10*6/uL Calcium 8.4 L (8.7-10.3) mg/dL Assessment and Plan Assessment: Dementia with behavioral changes, progressive dementia Metabolic encephalopathy, possible acute toxic encephalopathy Atrial fibrillation history History of coronary artery disease History of prostate cancer in 2010 History of hyperlipidemia History of hypertension GI prophylaxis DVT prophylaxis Full code Plan: Recommend to continue with current medications and social work consulted to assist with possible memory care unit placement. Patient was inquiring about [employer] and will appreciate input and recommendations from social work Patient currently requiring a sitter for safety as he is impulsive and likes to get up frequently and wanders and will continue for now Increase Seroquel to twice daily as patient does get anxious and agitated at times Follow-up on repeat labs and replace electrolytes per protocol Continue to encourage small frequent meals and supervision with meals Social work consulted and recommends urgent Medicaid application which was discussed with at the bedside Overall prognosis is guarded at this time. Patient was evaluated by physical therapy and did well with walking and would not qualify for [facility]
--- NOTE | 2025-02-19 16:07 | P.PN ---
Subjective Progress Note Date: 02/19/25 70-year-old male who was admitted with behavioral disturbances with ongoing dementia with progressive dementia showing some improvements with Seroquel. Patient continues to be confused with at the bedside and is quite anxious at times and impulsive wanting to get up and go home. Had a lengthy discussion with the patient's at the bedside who reports is a wanderer and will leave the home and has been brought back by police multiple times to the home as he was waving down traffic and altered and confused. Patient is looking into possible [facility] or [facility] unit and will consult social work to assist with this. Patient currently has a sitter at the bedside for safety and will continue for now. Patient is afebrile denies chest pain or shortness of breath. is not able to take care of him given his ongoing aggression, agitation, and wandering and he is unsafe. 02/17/2025 Patient is seen and evaluated with family members at bedside; patient is resting comfortably in bed; no specific complaints reported Vital signs are reviewed and remained stable Blood work from yesterday revealed sodium of 144, potassium 3.4, BUNs/creatinine of 20/1.2 -Vital screen has been consistently negative -Patient admitted with mental status changes related to toxic metabolic encephalopathy--resolved -Patient is currently at baseline Discharge planning in progress 02/18/2025 Patient is sitting up in bed; denies any complaint of chest pain or shortness of breath; discussed with nursing staff and case management -Placement in progress; patient could be accepted at [facility] and [facility] pending 3 night inpatient hospital stay; plan for possible discharge in next 24 hours Blood work reveals WBC of 8.2, hemoglobin of 13.6 and platelet count of 163, sodium 144, potassium 3.6, BUNs/creatinine of 18.7/1.1 -Patient is clinically stable for discharge 02/19/2025 Patient is seen and evaluated and discussed with nursing staff; no specific complaints Vital signs are reviewed and remained stable, temperature 97.8, pulse 68, respirations 17 and blood pressure of 107/64 -Blood work completed in last 24 hours is reviewed and stable Case management working on discharge planning Patient to be discharged to [facility] home tomorrow morning; MedRec completed and discharge medications E scribed to [facility] Objective - Vital Signs Vital signs: Vital Signs Temp 97.5 F L 02/19/25 07:55 Pulse 53 L 02/19/25 07:55 Resp 16 02/19/25 07:55 BP 121/76 02/19/25 07:55 Pulse Ox 97 02/19/25 07:55 FiO2 Intake & Output 02/18/25 02/19/25 02/19/25 18:59 06:59 18:59 Intake Total 236 Balance 236 Weight 96.615 kg Intake: Oral 236 Other: Voiding Method Toilet # Voids 2 2 - Exam GENERAL: The patient is alert and oriented x 12, baseline elderly appearing, anxious, obese well developed, well nourished. HEENT: Pupils are round and equally reacting to light. EOMI. no scleral icterus. No conjunctival pallor. Normocephalic, atraumatic. No pharyngeal erythema. No thyromegaly. CARDIOVASCULAR: S1 and S2 muffled PULMONARY: diminished breath sounds bilaterally with no wheezing or rhonchi noted. ABDOMEN: soft. Nontender on exam. obese. non-distended, normoactive bowel sounds. No palpable organomegaly. MUSCULOSKELETAL: No joint swelling or deformity. EXTREMITIES: No cyanosis, clubbing, or pedal edema. NEUROLOGICAL: Gross neurological examination did not reveal any focal deficits. Confused. Diffuse weakness SKIN: No rashes. - Labs CBC & Chem 7: 02/18/25 05:06 02/18/25 05:06 Assessment and Plan Assessment: Dementia with behavioral changes, progressive dementia Metabolic encephalopathy, possible acute toxic encephalopathy Atrial fibrillation history History of coronary artery disease History of prostate cancer in 2010 History of hyperlipidemia History of hypertension GI prophylaxis DVT prophylaxis Full code Plan: Recommend to continue with current medications and social work consulted to assist with possible memory care unit placement. Patient was inquiring about [employer] and will appreciate input and recommendations from social work Patient currently requiring a sitter for safety as he is impulsive and likes to get up frequently and wanders and will continue for now Increase Seroquel to twice daily as patient does get anxious and agitated at times Follow-up on repeat labs and replace electrolytes per protocol Continue to encourage small frequent meals and supervision with meals Social work consulted and recommends urgent Medicaid application which was discussed with at the bedside Overall prognosis is guarded at this time. Patient was evaluated by physical therapy and did well with walking and would not qualify for half-way
[2025-02-20 07:37] VITALS: BP 119/74; PULSE 54; RESP 17; TEMP 98.2
--- NOTE | 2025-02-20 12:46 | P.DS ---
Providers Date of admission: 02/16/25 08:03 Expected date of discharge: 02/20/25 Attending physician: Javier Juarez MD Primary care physician: Yo Stack Hospital Course: 70-year-old male who was admitted with behavioral disturbances with ongoing dementia with progressive dementia showing some improvements with Seroquel. Patient continues to be confused with at the bedside and is quite anxious at times and impulsive wanting to get up and go home. Had a lengthy discussion with the patient's at the bedside who reports is a wanderer and will leave the home and has been brought back by police multiple times to the home as he was waving down traffic and altered and confused. Patient is looking into possible [facility] or memory care unit and will consult social work to assist with this. Patient currently has a sitter at the bedside for safety and will continue for now. Patient is afebrile denies chest pain or shortness of breath. is not able to take care of him given his ongoing aggression, agitation, and wandering and he is unsafe. Dementia with behavioral changes, progressive dementia Metabolic encephalopathy, possible acute toxic encephalopathy Atrial fibrillation history History of coronary artery disease History of prostate cancer in 2010 History of hyperlipidemia History of hypertension GI prophylaxis DVT prophylaxis Full code Plan: Recommend to continue with current medications and social work consulted to assist with possible memory care unit placement. Patient was inquiring about [facility] and will appreciate input and recommendations from social work Patient currently requiring a sitter for safety as he is impulsive and likes to get up frequently and wanders and will continue for now Increase Seroquel to twice daily as patient does get anxious and agitated at times Follow-up on repeat labs and replace electrolytes per protocol Continue to encourage small frequent meals and supervision with meals Social work consulted and recommends urgent Medicaid application which was discussed with at the bedside 02/17/2025 Patient is seen and evaluated with family members at bedside; patient is resting comfortably in bed; no specific complaints reported Vital signs are reviewed and remained stable Blood work from yesterday revealed sodium of 144, potassium 3.4, BUNs/creatinine of 20/1.2 -Vital screen has been consistently negative -Patient admitted with mental status changes related to toxic metabolic encephalopathy--resolved -Patient is currently at baseline Discharge planning in progress 02/18/2025 Patient is sitting up in bed; denies any complaint of chest pain or shortness of breath; discussed with nursing staff and case management -Placement in progress; patient could be accepted at [facility] and [facility] pending 3 night inpatient hospital stay; plan for possible discharge in next 24 hours Blood work reveals WBC of 8.2, hemoglobin of 13.6 and platelet count of 163, sodium 144, potassium 3.6, BUNs/creatinine of 18.7/1.1 -Patient is clinically stable for discharge 02/19/2025 Patient is seen and evaluated and discussed with nursing staff; no specific complaints Vital signs are reviewed and remained stable, temperature 97.8, pulse 68, respirations 17 and blood pressure of 107/64 -Blood work completed in last 24 hours is reviewed and stable Case management working on discharge planning Patient to be discharged to [facility] home tomorrow morning; MedRec completed and discharge medications E scribed to [facility] 02/20/2025; patient is stable to be discharged Plan - Discharge Summary Discharge Rx Participant: No New Discharge Prescriptions: New QUEtiapine [SEROquel] 12.5 mg PO BID #30 tab Acetaminophen Tab [Tylenol] 650 mg PO Q6HR PRN #30 tab PRN Reason: Mild Pain Or Fever > 100.5 ALPRAZolam [Xanax] 0.5 mg PO TID PRN #6 tab PRN Reason: Anxiety Ezetimibe [Zetia] 10 mg PO DAILY #30 tab Continue Ergocalciferol (Vitamin D2) [Drisdol (50,000 Iu)] 1,250 mcg PO Q7D #4 cap hydroCHLOROthiazide [Hydrodiuril] 25 mg PO DAILY #30 tab Metoprolol Tartrate [Lopressor] 25 mg PO BID #60 tab amLODIPine [Norvasc] 10 mg PO DAILY #30 tab Donepezil 23mg 23 mg PO DAILY 30 Days #30 each Apixaban [Eliquis] 5 mg PO BID #60 tab Potassium Chloride ER [K-Dur 20] 20 meq PO DAILY #30 tab Atorvastatin [Lipitor] 80 mg PO DAILY #30 tab Memantine [Namenda] 10 mg PO BID #60 tab Valsartan 320 mg PO DAILY #30 tab Discontinued Ezetimibe [Zetia] 10 mg PO DAILY QUEtiapine [SEROquel] 25 mg PO HS Discharge Medication List ALPRAZolam [Xanax] 0.5 mg PO TID PRN #6 tab 02/19/25 [Rx] Acetaminophen Tab [Tylenol] 650 mg PO Q6HR PRN #30 tab 02/19/25 [Rx] Apixaban [Eliquis] 5 mg PO BID #60 tab 02/19/25 [Rx] Atorvastatin [Lipitor] 80 mg PO DAILY #30 tab 02/19/25 [Rx] Donepezil 23mg 23 mg PO DAILY 30 Days #30 each 02/19/25 [Rx] Ergocalciferol (Vitamin D2) [Drisdol (50,000 Iu)] 1,250 mcg PO Q7D #4 cap 02/19/25 [Rx] Ezetimibe [Zetia] 10 mg PO DAILY #30 tab 02/19/25 [Rx] Memantine [Namenda] 10 mg PO BID #60 tab 02/19/25 [Rx] Metoprolol Tartrate [Lopressor] 25 mg PO BID #60 tab 02/19/25 [Rx] Potassium Chloride ER [K-Dur 20] 20 meq PO DAILY #30 tab 02/19/25 [Rx] QUEtiapine [SEROquel] 12.5 mg PO BID #30 tab 02/19/25 [Rx] Valsartan 320 mg PO DAILY #30 tab 02/19/25 [Rx] amLODIPine [Norvasc] 10 mg PO DAILY #30 tab 02/19/25 [Rx] hydroCHLOROthiazide [Hydrodiuril] 25 mg PO DAILY #30 tab 02/19/25 [Rx] Follow up Appointment(s)/Referral(s): Yo Stack MD [Primary Care Provider] - 1-2 days Activity/Diet/Wound Care/Special Instructions: [facility]25 Prescriptions were E scribed to [facility] Discharge Disposition: TRANSFER TO SNF/ECF
--- NOTE | 2025-02-23 16:48 | CDI ---
Documentation Clarification Form Date: 02/23/2025 04:33:01 PM From: Tonie Trinidad Phone: Admit Date: 02/16/2025 08:03:00 AM Patient Name: Wesley Flores Visit Number: [id number] Discharge Date: 02/20/2025 02:35:00 PM ATTENTION: The Clinical Documentation Specialists (CDI) and [facility] Coding Staff appreciate your assistance in clarifying documentation. Please respond to the clarification below the line at the bottom and electronically sign. The CDI & [facility] Coding staff will review the response and follow-up if needed. Please note: Queries are made part of the Legal Health Record. If you have any questions, please contact the author of this message via ITS. Doctor/Provider: Rocio Acharya Metabolic Encephalopathy is documented in DS on 02/20/2025 which may lack sufficient clinical evidence/support in the medical record. Additional clarification is requested. Patient history/risk factors:This 70-year-old gentleman with a past medical history of worseneddementiawas [facility] yesterday [facility], but currently the patient was found to be wandering by the police, and the patient has been out several times during the last week, and the patient also has a history ofParkinson's. Clinical Indicators: H/P note 02/13 -Dementiawith behavioral changes. Metabolic encephalopathy,possiblyacutetoxic encephalopathy. Pn 02/15 -admitted with behavioral disturbances with ongoingdementiawith progressivedementiashowing some improvements with Seroquel. Patient continues to beconfusedwith at the bedside and is quite anxious at times andimpulsivewanting to get up and go home. Had a lengthy discussion with the patient's at the bedside who reports is a wanderer and will leave the home and has been brought back by police multiple times to the home as he was waving down traffic and altered andconfused. On 02/17 pn -Patient is seen and evaluated with family members at bedside; patient is resting comfortably in bed; no specific complaints reported Vital signs are reviewed and remained stable Blood work from yesterday revealed sodium of 144, potassium 3.4, BUNs/creatinine of 20/1.2 -Vital screen has been consistently negative -Patient admitted withmental status changesrelated totoxic metabolic encephalopathy--resolved -Patient is currently at baseline PN on 02/19 - Patient is seen and evaluated and discussed with nursing staff; no specific complaints Vital signs are reviewed and remained stable, temperature 97.8, pulse 68, respirations 17 and bloodpressureof 107/64 -Blood work completed in last 24 hours is reviewed and stable Treatment: monitor the patient closely, continue the current management and symptomatic treatment. I would also recommend marian Elder. Psych consultation.PT/OTevaluation, possible ECF rehab. After work up and study, please clarify which diagnosis is most appropriate? [ ] Metabolic Encephalopathy ruled out [ ] Metabolic Encephalopathy is a valid diagnosis as evidenced by the following: ___improvement in mentation with treatment [ ] Toxic metabolic encephalopathy ruled out [ ] Toxic metabolic encephalopathy is a valid diagnosis as evidenced by [ ] Delirium [ ] Unable to determine [ ] Other, please specify (Template Last Revised: November 2023) MTDD
== END 2025-02-20 14:35 | disposition home or self-care (01) | DRG 71 ==
LOC: EC 10:53 → 6NMEDSUR 12:00 → OBSVTOIN 02-16 08:03
PROVIDERS: ADMIT Internal Medicine; ATTEND Internal Medicine
DX: G93.41 Metabolic encephalopathy (principal); F02.818 Dementia in other diseases classified elsewhere, unspecified severity, with other behavioral disturbance; G20.A1 Parkinson's disease without dyskinesia, without mention of fluctuations; I10 Essential (primary) hypertension; I48.91 Unspecified atrial fibrillation; E78.5 Hyperlipidemia, unspecified; I25.10 Atherosclerotic heart disease of native coronary artery without angina pectoris; I25.2 Old myocardial infarction; E87.6 Hypokalemia; Z79.01 Long term (current) use of anticoagulants; Z79.899 Other long term (current) drug therapy; Z85.46 Personal history of malignant neoplasm of prostate
CPT/HCPCS: 80048; 80053; 81003; 83735; 84484; 85025; 87636; 93005; 99285